=== PATIENT | female | born 1945 | race Caucasian/White ===

== ENCOUNTER 2022-11-29 13:58 | Outpatient (OUT) | payer MEDICARE, SELFPAY ==
--- NOTE | 2022-11-29 14:00 | MM_ITS ---
Patient: SAMIR STREET Exam Date: 11/29/2022 : 1945 Gender:F Ordering : DR BENY DAVIS Admission #: [id number] Family : Order #: [id number] CLICK HERE TO VIEW EXAM RADIOLOGY REPORT PROCEDURE: MM TOMOSYNTHESIS SCREENING BI COMPARISON: MG MAMM SCREEN 3D BRONSON CAD, 11/03/2020. MG MAMM SCREEN 3D BRONSON CAD, 11/07/2021. INDICATIONS: Screening mammogram Z12.31 Calculator Name NCI Breast Cancer Risk Assessment Tool 5 Year Breast Cancer Risk 1.90% Lifetime Breast Cancer Risk 4.00% Personal Breast Cancer No Personal Ovarian Cancer No Treatments None Family Cancers Son with hodgkins lymphoma cancer at age 9; Father with esophogeal cancer at age 82. LOCATION: [facility] BREAST COMPOSITION: Almost entirely fatty. FINDINGS: DIAGNOSTIC CATEGORY 2--BENIGN FINDING. NO CHANGE FROM COMPARISON. Scattered benign-appearing calcifications are present. Scattered benign-appearing lymph nodes are present. RIGHT BREAST: No significant suspicious finding. LEFT BREAST: No significant suspicious finding. RECOMMENDATIONS: ROUTINE MAMMOGRAM AND CLINICAL EVALUATION IN 12 MONTHS. PLEASE NOTE: A NORMAL MAMMOGRAM DOES NOT EXCLUDE THE POSSIBILITY OF BREAST CANCER. A CLINICALLY SUSPICIOUS PALPABLE LUMP SHOULD BE BIOPSIED. Dictated by: Tyler Lnidsey MD on 11/30/2022 at 09:26 Approved by: Tyler Lindsey MD on 11/30/2022 at 09:28
== END 2022-11-29 13:59 | disposition home or self-care (01) ==
LOC: MAMMO 13:58
PROVIDERS: PCP Family Medicine; Visit Provider Family Medicine
DX: Z12.31 Encounter for screening mammogram for malignant neoplasm of breast (principal); Z80.0 Family history of malignant neoplasm of digestive organs; Z80.7 Family history of other malignant neoplasms of lymphoid, hematopoietic and related tissues
CPT/HCPCS: 77063; 77067

== ENCOUNTER 2022-12-17 07:34 | Outpatient (OUT) | payer MEDICARE, SELFPAY | END 2022-12-17 07:35 | disposition home or self-care (01) | LOC: PST 07:35 | PROVIDERS: PCP Family Medicine; Visit Provider Surgery | DX: Z01.818 Encounter for other preprocedural examination (principal); Z12.11 Encounter for screening for malignant neoplasm of colon; D64.9 Anemia, unspecified ==

== ENCOUNTER 2022-12-26 08:23 | Day surgery (SDC) | payer MEDICARE, SELFPAY ==
--- NOTE | 2022-12-26 | OP_ITS ---
OPERATION DATE: ??12/26/2022 PREOPERATIVE DIAGNOSIS:? Iron deficiency anemia, gastroesophageal reflux disease. POSTOPERATIVE DIAGNOSIS:? A 4 cm sliding type hiatal hernia, as well as a 4 mm cecal polyp. PROCEDURE:? EGD and colonoscopy to cecum with cold snare polypectomy x1. SURGEON:? Gulshan Damian M.D. ANESTHESIA:? Monitored anesthesia care. ESTIMATED BLOOD LOSS:? Less than 1 mL. INDICATIONS AND CONSENT:? Patient is a 77-year-old female with history of iron deficiency anemia on Eliquis.? She also has some gastroesophageal reflux disease.? Indications, risks, benefits, alternatives of proceeding with EGD and colonoscopy were explained extensively to the patient, including the risks of bleeding, aspiration, esophageal/gastric/duodenal or colonic perforation or anesthetic complications.? All of her questions were answered.? Informed consent was obtained. PROCEDURE:? Patient brought to the operating room, placed in the left lateral decubitus position.? Monitored anesthesia care was provided.? Bite block was placed in the patient?s mouth.? Scope was entered into the oropharynx.? Under direct visualization, it was advanced into the esophagus, past the cricopharyngeus, down to the stomach.? The stomach was insufflated with air.? The pylorus was traversed down to the descending portion of the duodenum.? There was no evidence of duodenitis or ulceration.? There was no scarring within the pyloric channel.?? The scope was pulled back into the stomach and retroflexed.? There was noted to be a sliding type hiatal hernia, approximately 4 cm.? No distal esophagitis or Ragland?s changes. ?The remainder of the esophagus was unremarkable.? No abnormalities were noted in the stomach.? The scope was then withdrawn.? Patient tolerated procedure well, was then positioned for colonoscopy.? Rectal exam was performed, which revealed no masses or blood.? The scope was then inserted into the anal canal.? Under direct visualization, it was advanced.? It was advanced to the cecum where cecal markings were clearly identified.? Within the cecum, there was noted to be a 4 mm sessile polyp that was removed with cold snare with good hemostasis.? Upon withdrawal of the scope, mucosal surfaces were carefully examined.? There were no other mass lesions or inflammatory changes.? There was moderate sigmoid diverticulosis without inflammatory changes or scarring.? The scope was retroflexed in the anal canal.? There were some small anal papillae but no significant hemorrhoidal disease.? The scope was then withdrawn.? The patient tolerated procedure well, was sent to recovery room in good condition. f/u colonoscopy likely in 5 years, but will depend on pathology of polyp. CC:? Asia Quezada
[2022-12-26 08:42] LABS: Glucometer 132 mg/dL (74-106)
[2022-12-26 08:46] VITALS: BMI 44.4
[2022-12-26] MEDS: LACTATED RINGER'S SOLUTION 1,000 ML 50 ML IV (08:52)
[2022-12-26 10:03] VITALS: BP 115/51; PULSE 71; RESP 16; O2SAT 96
[2022-12-26 10:25] VITALS: BP 159/68; PULSE 77; RESP 16; O2SAT 96
[2022-12-26 10:55] VITALS: BP 137/73; PULSE 68; RESP 16; O2SAT 97
== END 2022-12-26 11:00 | disposition home or self-care (01) ==
PROVIDERS: PCP Family Medicine; Visit Provider Surgery
PROC: (CPT 43235; principal; 2022-12-26 09:30)
DX: Z12.11 Encounter for screening for malignant neoplasm of colon (principal); D12.0 Benign neoplasm of cecum; K57.30 Diverticulosis of large intestine without perforation or abscess without bleeding; D50.9 Iron deficiency anemia, unspecified; K44.9 Diaphragmatic hernia without obstruction or gangrene; Z87.891 Personal history of nicotine dependence; K21.9 Gastro-esophageal reflux disease without esophagitis; Z79.01 Long term (current) use of anticoagulants; E11.9 Type 2 diabetes mellitus without complications; I10 Essential (primary) hypertension; E66.01 Morbid (severe) obesity due to excess calories; Z68.41 Body mass index [BMI] 40.0-44.9, adult; Z86.711 Personal history of pulmonary embolism; G47.33 Obstructive sleep apnea (adult) (pediatric); Z90.49 Acquired absence of other specified parts of digestive tract; Z90.710 Acquired absence of both cervix and uterus; Z79.84 Long term (current) use of oral hypoglycemic drugs
CPT/HCPCS: 43235; 45385; 36415; 82948; 88305; J2704

== ENCOUNTER 2023-08-28 13:49 | Outpatient (OUT) | payer MEDICARE, SELFPAY ==
--- NOTE | 2023-08-28 14:00 | CA_ITS ---
Patient Name: SAMIR STREET MR#: [id number] : 1945 Exam Date: 08/28/2023 Ordering Doctor: TODD VILLANUEVA M.D. ECHOCARDIOGRAM REPORT PROCEDURE: CA ECHO DOPPLER COMPLETE INDICATIONS: Palpitations, Right Bundle Branch Block, hypertension, diabetes COMPARISON: None. DESCRIPTION: COMPLETE ECHOCARDIOGRAM Real-time transthoracic echocardiography with 2D, M-mode, spectral and color flow Doppler performed. QUALITY: Technical quality was good. 60 , 216#, BSA 1.93 m2, BP 132/88 LEFT VENTRICLE: Normal chamber size. Mild concentric left ventricular hypertrophy. LV EF: Global left ventricular systolic function is normal; visually estimated ejection fraction is 60 to 65%. No significant wall motion abnormalities. DIASTOLIC: Unable to assess diastolic function. ATRIAL SEPTUM: Inadequately seen. LEFT ATRIUM: Normal chamber size. RIGHT ATRIUM: Normal chamber size. RIGHT VENTRICLE: Normal chamber size. Normal right ventricular systolic function. TRICUSPID VALVE: Normal mobility and thickness. No stenosis with no regurgitation. Unable to assess right-sided pressures due to lack of measurable tricuspid regurgitation. MITRAL VALVE: Normal mobility and thickness. No evidence of mitral valve stenosis. There is no mitral annular calcification. Trivial mitral regurgitation. AORTIC VALVE: Normal trileaflet appearance. No visible sclerosis. Normal leaflet mobility. No evidence of aortic valve stenosis. No aortic regurgitation. AORTIC ROOT: Normal diameter and appearance. Ascending aorta is normal in size. PULMONIC VALVE: Not well visualized. No stenosis. No regurgitation. PERICARDIUM: Anterior free space; trivial effusion versus fat pad. IVC: Not well visualized. CONCLUSION: 1. Global left ventricular systolic function is normal; visually estimated ejection fraction is 60 to 65% 2. Mildly increased left ventricular wall thickness 3. Normal right ventricular size and systolic function 4. No significant valvular abnormalities 5. Anterior free space; trivial effusion versus fat pad Adult Echocardiography Procedure Report Left Ventricle LVEDD (3.7 - 5.6 cm): 4.02 cm LVESD (2.2 - 4.0 cm): 2.46 cm LVIVS thickness (0.6 - 1.2 cm): 1.23 cm LVPW thickness (0.5 - 1.0 cm): 1.31 cm e': 0.08 m/s E - e': 10.54 LVOT Max Gradient: 2.06 mm[Hg] LVOT Area (cm2): 0.72 m/s Peak Velocity (LVOT): 0.72 m/s Mean Velocity (LVOT): 0.49 m/s LVOT Diameter 2.33 cm Left Atrium Left Atrium Systolic Dimension: 4.30 cm Mitral Valve MV E to A Ratio: 1 Mitral Valve A-Wave Peak Velocity: 0.87 m/s Mitral Valve E-Wave Peak Velocity: 0.87 m/s Right Ventricle Aorta AO Root Diam: 3.72 cm Ascending Ao Diam: 2.80 cm Aortic Valve AoV Area (Peak Quinten): 2.68 cm2, 2.68 cm2 AoV Area (VTI): 3.05 cm2, 3.05 cm2 Peak Velocity(Antegrade Flow): 1.14 m/s Peak Gradient(Antegrade Flow): 5.20 mm[Hg] Mean Velocity(Antegrade Flow): 0.72 m/s Mean Gradient(Antegrade Flow): 2.49 mm[Hg] Velocity Time Integral: 23.71 cm Tricuspid Valve Pulmonic Valve Peak Gradient: 4.55 mm[Hg], 4.13 mm[Hg] Right Atrium Dictated by: Lupis Castillo M.D. on 08/29/2023 at 15:39 Approved by: Lupis Castillo M.D. on 08/29/2023 at 15:42
== END 2023-08-28 13:50 | disposition home or self-care (01) ==
LOC: CARD 13:50
PROVIDERS: PCP Family Medicine; Visit Provider Internal Medicine Cardiovascular Disease
DX: R00.2 Palpitations (principal); I45.10 Unspecified right bundle-branch block
CPT/HCPCS: 93306

== ENCOUNTER 2023-12-02 10:31 | Outpatient (OUT) | payer MEDICARE, SELFPAY ==
--- NOTE | 2023-12-02 10:33 | MM_ITS ---
Patient Name: SAMIR STREET MR#: [id number] : 1945 Exam Date: 12/02/2023 Ordering Doctor: DR BENY DAVIS RADIOLOGY REPORT PROCEDURE: MM TOMOSYNTHESIS SCREENING BI COMPARISON: MM TOMOSYNTHESIS SCREENING BI, 11/29/2022. MG MAMM SCREEN 3D BRONSON CAD, 11/07/2021. MG MAMM SCREEN 3D BRONSON CAD, 11/03/2020. MG MAMM BRONSON SCRN W CAD DIG, 03/24/2013. INDICATIONS: Screening Calculator Name NCI Breast Cancer Risk Assessment Tool 5 Year Breast Cancer Risk 1.90% Lifetime Breast Cancer Risk 3.80% Personal Breast Cancer No Personal Ovarian Cancer No Treatments None Family Cancers Son with hodgkins lymphoma cancer at age 9; Father with esophogeal cancer at age 82. LOCATION: [facility] BREAST COMPOSITION: The breasts are almost entirely fatty. FINDINGS: DIAGNOSTIC CATEGORY 2--BENIGN FINDING: RIGHT BREAST: No significant suspicious finding. No significant change has occurred. LEFT BREAST: No significant suspicious finding. Scattered benign-appearing calcifications are present. No significant change has occurred. RECOMMENDATIONS: ROUTINE MAMMOGRAM AND CLINICAL EVALUATION IN 12 MONTHS. PLEASE NOTE: A NORMAL MAMMOGRAM DOES NOT EXCLUDE THE POSSIBILITY OF BREAST CANCER. A CLINICALLY SUSPICIOUS PALPABLE LUMP SHOULD BE BIOPSIED. Dictated by: Benny Lezama M.D. on 12/03/2023 at 13:19 Approved by: Benny Lezama M.D. on 12/03/2023 at 13:24
== END 2023-12-02 10:32 | disposition home or self-care (01) ==
LOC: MAMMO 10:31
PROVIDERS: PCP Family Medicine; Visit Provider Family Medicine
DX: Z12.31 Encounter for screening mammogram for malignant neoplasm of breast (principal); Z80.8 Family history of malignant neoplasm of other organs or systems
CPT/HCPCS: 77063; 77067

== ENCOUNTER 2024-12-04 13:15 | Outpatient (OUT) | payer MEDICARE, SELFPAY ==
--- OUTSIDE RECORDS SUMMARY | 2024-11-20 02:28 | XMS_ITS | Encounter Summary ---
Author Organization [facility] tem Address [facility] – [id number] [address] [place] [address] Care Team Providers Care Ball Winder Name Role Phone Law Patel Delaney RAMIREZ Primary Care Provider + [phone] Reason for Referral * Consultation (Urgent) - Pending Review Specialty Diagnoses / Procedures Referred By Contal t Referred To Contact Orthopaedic Surgery Diagnoses Anterior dislocation of right shoulder, initial encounter Gulshan Diaz DO [address] [facility], [address] [place] [address] Phone: tel: fax: Mo Honeycutt MD [address] [place] [address] Phone: tel: fax: Referral ID Status Reason Start Date Expiration Date Visits Requested Visits Authorized [id number] Pending Review Specialty Services Required 11/20/2024 11/20/2025 1 1 Reason for Visit * Reason Comments Fall Encounter Details Date Type Department Care Team (Late st Contact Info) Description 11/20/2024 2:28 AM EDT - 11/20/2024 6:54 AM EDT Emergency [facility] - Emergency [address] [place] [address] Gulshan Diaz DO [address] [facility], [address] [place] [id number] Anterior dislocation of right shoulder, initial encounter (Primary Dx) Discharge Disposition: Home Social History Tobacco Use Types Packs/Day Years Used Date Smoking Tobacco: Former Cigarettes 1 10 0 09/27/1994 - 09/27/2004 Smokeless Tobacco: Never Alcohol Use Standard Drinks/Week Comments Yes 10 (1 standard drink = 0.6 oz pu re alcohol) [facility] Utilities Answer Date Recorded In the past 12 months has e electric, gas, oil, or water company threatened to shut off services in your home? No 05/20/2023 Social Connection and Isolat ion Panel [NHANES] Answer Date Recorded In a typical week, how many times do you talk on the phone with family, friends, or neighbors? Three times a week 10/05/2022 How often do you get togethe r with friends or relatives? More than three times a week 10/05/2022 How often do you attend chur ch or latter-day services? More than 4 times per year 10/05/2022 Do you belong to any clubs o r organizations such as adventism groups, unions, fraternal or athletic groups, or school groups? Yes 10/05/2022 How often do you attend meet ings of the clubs or organizations you belong to? More than 4 times per year 10/05/2022 Are you , , di vorced, , never , or living with a partner? 10/05/2022 AUDIT-C Answer Date Recorded Q1: How often do you have a drink containing alc ohol? 2-4 times a month 02/06/2022 Q2: How many drinks containi ng alcohol do you have on a typical day when you are drinking? 1 or 2 02/06/2022 Q3: How often do you have si x or more drinks on one occasion? Never 02/06/2022 Overall Financial Resource Strain (CARDIA) Answe r Date Recorded How hard is it for you to pa y for the very basics like food, housing, medical care, and heating? Not hard at all 10/05/2022 PHQ-2 Answer Date Recorded Total Score 0 11/06/2024 [employer] - Occupational Stress Questionnaire Answer Date Recorded Do you feel stress - tense, restless, nervous, or anxious, or unable to sleep at night because your mind is troubled all the time - these days? Not at all 01/07/2024 Exercise Vital Sign Answer Date Recorde d On average, how many days pe r week do you engage in moderate to strenuous exercise (like a brisk walk)? 0 days 01/07/2024 On average, how many minutes do you engage in exercise at this level? 0 min 01/07/2024 PRAPARE - Transportation Answer Date Re corded In the past 12 months, has l ack of transportation kept you from medical appointments or from getting medications? No 04/30 In the past 12 months, has l ack of transportation kept you from meetings, work, or from getting things needed for daily living? No 05/18/2023 Housing Instability Answer Date Recorde d Are you worried or concerned that in the next two months you may not have stable housing that you own, rent or stay in as a part of a household? No 05/18/2023 Childcare Answer Date Recorded Do problems getting child ca re make it difficult for you to work or study? No 10/05/2022 Employment Answer Date Recorded Do you need help finding a [employer] career center and/or a training program? No 10/05/2022 Hunger Screening Answer Date Recorded Within the past 12 months we worried whether our food would run out before we got money to buy more. Never True 11/06/2024 Within the past 12 months th e food we bought just didn't last and we didn't have money to get more. Never True 11/06/2024 Purpose - Life Answer Date Recorded I have a purpose and direction in my life. Stron gly Agree 10/05/2022 Comments No Sex and Gender Information Value Date Recorded Sex Assigned at Not on file Legal Sex Female 12:56 PM EDT Gender Identity Not on file Sexual Orientation Not on file documented as of this encounter Last Filed Vital Signs Vital Sign Reading Time Taken Comments Blood Pressure 143/59 11/20/2024 6:36 AM EDT Pulse 76 11/20/2024 6:36 AM EDT Temperature 37 C (98.6 F) 11/20/2024 6:36 AM EDT Respiratory Rate 17 11/20/2024 6:36 AM EDT Oxygen Saturation 95% 11/20/2024 6:36 AM EDT Inhaled Oxygen Concentration - - Weight 90.7 kg (200 lb) 11/20/2024 2:26 AM EDT Height 152.4 cm (5') 11/20/2024 2:26 AM EDT Body Mass Index 39.06 11/20/2024 2:26 AM EDT documented in this encounter Discharge Instructions * Discharge Instructions* Gulshan Diaz DO - 11/20/2024 5:59 AM EDT Please utilize sling as discussed. You may use [id number] Tylenol as directed for management of pain. Contact the orthopedic surgeon and your family doctor as soon as possible to schedule a follow up appointment. Please return to the emergency department for any new or worsening symptoms. * Attachments The following attachments cannot be sent through Care Everywhere. * Shoulder Dislocation Discharge Instructions (Bahraini) documented in this encounter Medications at Time of Discharge acetaminophen (TYLENOL ARTHRITIS) 650 mg 8 hr tablet Take 1 tablet (650 mg total) by mouth every 8 (eight) hours as needed for pain. 30 tablet 10/05/2022 ELIQUIS 5 mg tablet TAKE 1 TABLET BY MOUTH TWICE DAILY 180 tablet 3 04/06/2024 escitalopram (LEXAPRO) 10 mg tablet TAKE 1 TABLET BY MOUTH IN THE MORNING 90 tablet 1 08/31/2024 iron dextran complex (INFED) 50 mg/mL injection Infuse into a venous catheter. JARDIANCE 10 mg tablet tablet TAKE 1 TABLET BY MOUTH IN THE MORNING 90 tablet 11/02/2024 losartan-hydroCH LOROthiazide (HYZAAR) 50-12.5 mg per tablet TAKE 1 TABLET BY MOUTH IN THE MORNING 90 tablet 1 09/21/2024 mecobalamin, vitamin B12, 10,000 mcg recon soln Inject as directed. metFORMIN (GLUCOPHAGE) 500 mg tablet TAKE 1 TABLET BY MOUTH TWICE DAILY 180 tablet 3 03/18/2024 metoprolol succinate XL (TOPROL XL) 100 mg 24 hr tablet Take 1 tablet (100 mg total) by mouth in the morning. 10/14/2024 mirtazapine (REMERON) 15 mg tablet Take 0.5 tablets (7.5 mg total) by mouth nightly as needed. 04/30/2023 semaglutide (OZEMPIC) 0.25 mg or 0.5 mg (2 mg/3 mL) pen injector Inject 0.5 mg under the skin once a week. 9 mL 3 11/16/2024 simvastatin (ZOCOR) 20 mg tablet TAKE 1 TABLET BY MOUTH DAILY 90 tablet 1 09/21/2024 TRUE METRIX GLUCOSE METER misc 09/26/2023 TRUE METRIX GLUCOSE TEST STRIP strip USE DIRECTED to test BLOOD SUGAR ONCE DAILY 09/23/2024 lansoprazole (PREVACID) 30 mg capsule TAKE 1 CAPSULE BY MOUTH DAILY NEEDED 90 capsule 1 06/28/2024 11/24/2024 documented as of this encounter ED Notes * Gulshan Diaz DO - 11/20/2024 2:56 AM EDTAssociated Order(s): Orthopedic Injury Treatment Images from the original note were not included. [facility] - EMERGENCY Pt Name: Daisy Andrews Birthdate: 1945 Chief Complaint: Chief Complaint Patient presents with Fall History of Present Illness: 79-year-old female presenting for evaluation s/p fall. Patient states that around 6:00 p.m. yesterday evening, she was in her kitchen, tripped on her feet, fell onto her right shoulder. Denies hitting her head or any loss of consciousness. States that since the incident, she has had pain in her right shoulder and proximal humerus. Range of motion limited secondary to pain. Denies any headaches, changes in vision, neck pain/stiffness, extremity numbness, chest pain, shortness of breath, abdominal pain, back pain, flank pain, nausea/vomiting, or any other areas of injury or pain. Took Tylenol after the incident with mild improvement in symptoms. No other complaints during today's evaluation. Past Medical History: Past Medical History: Diagnosis Date Hyperlipidemia Other pulmonary embolism without acute cor pulmonale (CMS-HCC) Sliding hiatal hernia Visual impairment Past Surgical History: Past Surgical History: Procedure Laterality Date CATARACT EXTRACTION CHOLECYSTECTOMY COLONOSCOPY 01/03/2023 Dr. Damian-1 polyp ESOPHAGOGASTRODUODENOSCOPY 01/03/2023 Dr. Damian HYSTERECTOMY RELEASE TRIGGER FINGER Left 01/03/2022 Performed by Scott Díaz DO at [facility] Family History: Family History Problem Relation Age of Onset No Known Problems Mother sudden at 75, smoker Esophageal cancer Father at age 82; smoker Heart attack Sister sudden at age 52; smoker Hypertension Sister No Known Problems Sister Hypertension Brother Stroke Brother 52 COPD Son 49 pneumothorax Social History: Social History Socioeconomic History Marital status: Tobacco Use Smoking status: Former Current packs/day: 0.00 Average packs/day: 1 pack/day for 10.0 years (10.0 ttl pk-yrs) Types: Cigarettes Start date: 09/27/1994 Quit date: 09/27/2004 Years since quittin.1 Smokeless tobacco: Never Vaping Use Vaping status: Never Used Substance and Sexual Activity Alcohol use: Yes Alcohol/week: 10.0 standard drinks of alcohol Types: 10 Shots of liquor per week Drug use: Never Sexual activity: Defer Social Drivers of Health Financial Resource Strain: Low Risk (10/05/2022) Overall Financial Resource Strain (CARDIA) Difficulty of Paying Living Expenses: Not hard at all Food Insecurity: No Food Insecurity (11/06/2024) Hunger Screening Food Insecurity - Worry: Never True Food Insecurity - Inability: Never True Transportation Needs: No Transportation Needs (05/18/2023) PRAPARE - Transportation Lack of Transportation (Medical): No Lack of Transportation (Non-Medical): No Physical Activity: Inactive (01/07/2024) Exercise Vital Sign Days of Exercise per Week: 0 days Minutes of Exercise per Session: 0 min Stress: No Stress Concern Present (01/07/2024) [employer] - Occupational Stress Questionnaire Feeling of Stress : Not at all Social Connections: Moderately Integrated (10/05/2022) Social Connection and Isolation Panel [NHANES] Frequency of Communication with Friends and Family: Three times a week Frequency of Social Gatherings with Friends and Family: More than three times a week Attends Christianity Services: More than 4 times per year Active Member of Clubs or Organizations: Yes Attends Club or Organization Meetings: More than 4 times per year Marital Status: Interpersonal Safety: Not At Risk (01/07/2024) Humiliation, Afraid, Rape, and Kick questionnaire Fear of Current or Ex-Partner: No Emotionally Abused: No Physically Abused: No Sexually Abused: No Housing Instability: Low Risk (05/18/2023) Housing Instability Housing Instability: No Review of Systems: Review of Systems Physical Exam: ED Triage Vitals [11/20/24 0226] Temp Heart Rate Resp BP SpO2 36.8 ??C (98.3 ??F) 73 19 149/72 97 % Temp Source Heart Rate Source Patient Position BP Location FiO2 (%) Oral Pulse Ox Semi-fowlers Left arm -- Vitals: 11/20/24 0620 11/20/24 0625 11/20/24 0630 11/20/24 0636 BP: 150/57 143/59 Temp: 37 ??C (98.6 ??F) TempSrc: Pulse: 74 76 76 76 Resp: 16 15 16 17 SpO2: 94% 93% 95% 95% MAP (mmHg): 79 Height: Weight: 95 Physical Exam Vitals and nursing note reviewed. Exam conducted with a cigar head piercer present. Constitutional: General: She is not in acute distress. Appearance: Normal appearance. She is normal weight. HENT: Head: Normocephalic and atraumatic. Comments: No external signs of trauma to the head. Right Ear: Tympanic membrane and external ear normal. Left Ear: Tympanic membrane and external ear normal. Nose: Nose normal. Mouth/Throat: Mouth: Mucous membranes are moist. Pharynx: Oropharynx is clear. Eyes: General: No scleral icterus. Extraocular Movements: Extraocular movements intact. Conjunctiva/sclera: Conjunctivae normal. Pupils: Pupils are equal, round, and reactive to light. Neck: Comments: No midline cervical tenderness, step-offs, or deformities. Cardiovascular: Rate and Rhythm: Normal rate and regular rhythm. Pulses: Normal pulses. Heart sounds: Normal heart sounds. No murmur heard. No friction rub. No gallop. Pulmonary: Effort: Pulmonary effort is normal. No respiratory distress. Breath sounds: Normal breath sounds. No stridor. No wheezing, rhonchi or rales. Chest: Chest wall: No tenderness. Abdominal: General: Abdomen is flat. Bowel sounds are normal. Palpations: Abdomen is soft. Tenderness: There is no abdominal tenderness. Musculoskeletal: Cervical back: Normal range of motion and neck supple. No rigidity or tenderness. Right lower leg: No edema. Left lower leg: No edema. Comments: No midline tenderness, step-offs, or deformities to the thoracic or lumbar spine. Tenderness over the right shoulder. Range of motion limited secondary to pain. No other palpable areas of bony tenderness. Neurovascularly intact distally. Equal ocean clam boat captain strength bilaterally. Skin: General: Skin is warm and dry. Capillary Refill: Capillary refill takes less than 2 seconds. Coloration: Skin is not jaundiced or pale. Findings: No rash. Neurological: General: No focal deficit present. Mental Status: She is alert and oriented to person, place, and time. Mental status is at baseline. Cranial Nerves: No cranial nerve deficit. Sensory: No sensory deficit. Motor: No weakness. Coordination: Coordination normal. Psychiatric: Mood and Affect: Mood normal. Behavior: Behavior normal. Thought Content: Thought content normal. Procedure: Orthopedic Injury Treatment Date/Time: 11/20/2024 5:24 AM Performed by: Gulshan Diaz DO Authorized by: Gulshan Diaz, DO Verbal consent obtained?: Yes Written consent obtained?: Yes Risks and benefits: Risks, benefits, complications and alternatives were discussed Consent given by: Patient Patient states understanding of procedure being performed: Yes Patient's understanding of procedure matches consent: Yes Procedure consent matches procedure scheduled: Yes Relevant documents present and verified: Yes Test results available and properly labeled: Yes Site marked: Yes Imaging studies available: Yes Required items: Required blood products, implants, devices and special equipment available Patient identity confirmed: Verbally with patient and arm band Time out: Immediately prior to the procedure a time out was called Injury location: Shoulder Location details: Right shoulder Injury type: Dislocation Dislocation type: anterior Chronicity: [place] Hill-Sachs deformity?: No Neurovascular status: Neurovascularly intact Distal perfusion: normal Neurological function: normal Range of motion: reduced Sedation used: Yes Sedation Type: moderate (Conscious) sedation Pre-sedation assessment: ASA classification: class 2 - patient with mild systemic disease Mallampati score: I - soft palate, uvula, fauces, pillars visible Neck mobility: normal Mouth openin or more finger widths Thyromental distance: 3 finger widths Immediate pre-procedure details: Reassessment: Patient reassessed immediately prior to procedure Reviewed: vital signs, relevant labs/tests and NPO status Verified: bag valve mask available, emergency equipment available, intubation equipment available, IV patency confirmed, oxygen available, reversal medications available and suction available Procedure details (see MAR for exact dosages): Sedation start time: 11/20/2024 5:24 AM Preoxygenation: Nasal cannula Sedation: Propofol Analgesia: Fentanyl Intra-procedure monitoring: Blood pressure monitoring, shelter monitor, continuous pulse oximetry, continuous capnometry, frequent LOC assessments and frequent vital sign checks Intra-procedure events: none Vital signs: Vital signs monitored during sedation Sedation end time: 11/20/2024 5:50 AM Post-procedure sedation details: Attendance: Constant attendance by certified staff until patient recovered Recovery: Patient returned to pre-procedure baseline Manipulation performed?: Yes Reduction method: External rotation and Milch technique Reduction successful?: Yes Confirmation: Reduction confirmed by x-ray Immobilization: Sling Neurovascular status: Neurovascularly intact Distal perfusion: normal Neurological function: normal Range of motion: improved Patient tolerance: Patient tolerated the procedure well with no immediate complications Re-evaluation: Re-Evaluation Medical Decision Making Amount and/or Complexity of Data Reviewed Radiology: ordered and independent interpretation performed. Decision-making details documented in ED Course. Risk OTC drugs. Prescription drug management. Parenteral controlled substances. ED Course: ED Course as of 12/01/24633Nov 20, 2024 0318 Imaging independently reviewed and concerning for anterior shoulder dislocation. [MB] ED Course User Index [MB] Gulshan Diaz DO Clinical Impressions as of 12/01/24633 Anterior dislocation of right shoulder, initial encounter . ED Disposition ED Disposition Discharge Date/Time SatNov 20, 2024 6:28 AM Comment At the time of discharge, the plan has been discussed with the patient regarding the diagnosis and prognosis. All questions have been answered. Verbal discharge instructions were discussed with the patient. The patient has been advised to follow up w ith their Primary Care Provider and Specialist within 1-2 days. The patient was also instructed to return to the ED if their symptoms change, worsen, new symptoms arise or if they have any additional concerns. . Please note that portions of this note were completed with a voice recognition program. Efforts were made to edit the dictations but occasionally words are mis-transcribed. Gulshan Diaz DO 11/20/24 025 Gulshan Diaz DO 12/01/24633 * Nikki Sheikh RN - 11/20/2024 2:29 AM EDT Pt reports trip and fall this evening, landing on R shoulder. Tylenol for pain has not improved, painful ROM. documented in this encounter Miscellaneous Notes * Sedation Documentation - Antonieat Chua RN - 11/20/2024 5:59 AM EDT Given water to drink. Awake and alert. Son at bedside. * Sedation Documentation - Antonieta Chua RN - 11/20/2024 5:50 AM EDT Sling applied to right upper extremity. * Sedation Documentation - Antonieta Chua RN - 11/20/2024 5:41 AM EDT Post-reduction x-ray done and looks good per Dr. Diaz. * Sedation Documentation - Antonieta Chua RN - 11/20/2024 5:[address] Diaz manipulating right shoulder. * Sedation Documentation - Antonieta Chua RN - 11/20/2024 5:33 AM EDT Given another 10 mg of diprovan ivp per Dr. Diaz. * Sedation Documentation - Antonieta Chua RN - 11/20/2024 5:10 AM EDT Parisa from Respiratory here for conscious sedation. documented in this encounter Plan of Treatment Upcoming Encounters Date Type Department Care Team (Late st Contact Info) Description 01/12/2025 1:00 PM EDT Office Visit [facility] [address] [place] [address] 05/10/2025 1:45 PM EST Office Visit [facility] [address] [place] [address] Patel Foy DO [address], [place] [address] Scheduled Referrals Name Type Priority Associated Diagnoses Order Schedule Ambulatory referral to Orthopedic Surgery Outpatient Referral Routine Anterior dislocation of right shoulder, initial encounter 1 Occurrences starting 11/20/2024 until 11/20/2025 documented as of this encounter Procedures Procedure Name Priority Date/Time Associated Diagnosis Comments XR SHOULDER RT 1 VW STAT 11/20/2024 5 :44 AM EDT PM ED ORTHOPEDIC INJURY TREATMENT Routine 11/20/2024 5:24 AM EDT XR SHOULDER RT 1 VW STAT 11/20/2024 4 :41 AM EDT XR HUMERUS RT MIN 2 VWS STAT 11/20/2024 3:15 AM EDT XR SHOULDER RT MIN 2 VWS STAT 11/20/2024 3:15 AM EDT documented in this encounter Results * X-ray shoulder right 1 view (11/20/2024 5:44 AM EDT) Anatomical Region Laterality Modality MSK, Upper Extremities, Shoulder Right Computed Radiography 11/20/2024 5:46 AM EDT Narrative 11/20/2024 5:52 AM EDT XR SHOULDER RT 1 VW HISTORY: Dislocation status post reduction COMPARISON: 11/20/2024 0434 hours FINDINGS/IMPRESSION: * Satisfactory glenohumeral articulation status post reduction. No appreciable fracture on this single view. Approved by Resident: Hola Tamez MD on 11/20/2024 5:46 AM Radha Martinez MD have personally reviewed the image(s) and agree with and/or edited the report Finalized by Radha Spivey MD on 11/20/2024 5:52 AM Procedure Note Radha Spivey MD - 11/20/2024 XR SHOULDER RT 1 VW HISTORY: Dislocation status post reduction COMPARISON: 11/20/2024 0434 hours FINDINGS/IMPRESSION: * Satisfactory glenohumeral articulation status post reduction. Noappreciable fracture on this single view. Approved by Resident: Hola Tamez MD on 11/20/2024 5:46AM Radha Martinez MD have personally reviewed the image(s) and agree withand/or edited the report Finalized by Radha Spivey MD on 11/20/2024 5:52 AM Gulshan Diaz DO [facility] ORDERAB LES Final Result * Orthopedic Injury Treatment (11/20/2024 5:24 AM EDT) Gulshan Davidson DO - 11/20/2024 5:24 AM EDT Gulshan Diaz DO 12/01/2024 6:34 AM Orthopedic Injury Treatment Date/Time: 11/20/2024 5:24 AM Performed by: Gulshan Diaz DO Authorized by: Gulshan Diaz DO Verbal consent obtained?: Yes Written consent obtained?: Yes Risks and benefits: Risks, benefits, complications and alternatives were discussed Consent given by: Patient Patient states understanding of procedure being performed: Yes Patient's understanding of procedure matches consent: Yes Procedure consent matches procedure scheduled: Yes Relevant documents present and verified: Yes Test results available and properly labeled: Yes Site marked: Yes Imaging studies available: Yes Required items: Required blood products, implants, devices and special equipment available Patient identity confirmed: Verbally with patient and arm band Time out: Immediately prior to the procedure a time out was called Injury location: Shoulder Location details: Right shoulder Injury type: Dislocation Dislocation type: anterior Chronicity: [place]-Sachs deformity?: No Neurovascular status: Neurovascularly intact Distal perfusion: normal Neurological function: normal Range of motion: reduced Sedation used: Yes Sedation Type: moderate (Conscious) sedation Pre-sedation assessment: ASA classification: class 2 - patient with mild systemic disease Mallampati score: I - soft palate, uvula, fauces, pillars visible Neck mobility: normal Mouth openin or more finger widths Thyromental distance: 3 finger widths Immediate pre-procedure details: Reassessment: Patient reassessed immediately prior to procedure Reviewed: vital signs, relevant labs/tests and NPO status Verified: bag valve mask available, emergency equipment available, intubation equipment available, IV patency confirmed, oxygen available, reversal medications available and suction available Procedure details (see MAR for exact dosages): Sedation start time: 11/20/2024 5:24 AM Preoxygenation: Nasal cannula Sedation: Propofol Analgesia: Fentanyl Intra-procedure monitoring: Blood pressure monitoring, shelter monitor, continuous pulse oximetry, continuous capnometry, frequent LOC assessments and frequent vital sign checks Intra-procedure events: none Vital signs: Vital signs monitored during sedation Sedation end time: 11/20/2024 5:50 AM Post-procedure sedation details: Attendance: Constant attendance by certified staff until patient recovered Recovery: Patient returned to pre-procedure baseline Manipulation performed?: Yes Reduction method: External rotation and Milch technique Reduction successful?: Yes Confirmation: Reduction confirmed by x-ray Immobilization: Sling Neurovascular status: Neurovascularly intact Distal perfusion: normal Neurological function: normal Range of motion: improved Patient tolerance: Patient tolerated the procedure well with no immediate complications Gulshan Diaz DO PROCEDURE/MINOR SURGICAL ORDER SUNIL Final Result * X-ray shoulder right 1 view (11/20/2024 4:41 AM EDT) Anatomical Region Laterality Modality MSK, Upper Extremities, Shoulder Right Computed Radiography 11/20/2024 4:43 AM EDT Narrative 11/20/2024 4:48 AM EDT XR SHOULDER RT 1 VW HISTORY: Postreduction, shoulder pain COMPARISON: 11/21/2019 5032 hours FINDINGS/IMPRESSION: * Persistent anterior inferior glenohumeral dislocation. Approved by Resident: Hola Tamez MD on 11/20/2024 4:43 AM Jorge Martinez MD have personally reviewed the image(s) and agree with and/or edited the report Finalized by Jorge Bullock MD on 11/20/2024 4:48 AM Procedure Note Jorge Bullock MD - 11/20/2024 XR SHOULDER RT 1 VW HISTORY: Postreduction, shoulder pain COMPARISON: 11/21/2019 5032 hours FINDINGS/IMPRESSION: * Persistent anterior inferior glenohumeral dislocation. Approved by Resident: Hola Tamez MD on 11/20/2024 4:43AM I, Jorge Bullock MD have personally reviewed the image(s) and agreewith and/or edited the report Finalized by Jorge Bullock MD on 11/20/2024 4:48 AM Gulshan Diaz DO IMG DIAGNOSTIC IMAGING ORDERAB LES Final Result * X-ray humerus right minimum 2 views (11/20/2024 3:15 AM EDT) Anatomical Region Laterality Modality Upper Extremities, MSK, Humerus Right Computed Radiography 11/20/2024 3:19 AM EDT Narrative 11/20/2024 3:20 AM EDT History: Fall, right arm pain Exam/Technique: 2 views right humerus Comparison: No relevant prior studies available. Findings/impression: There is anterior shoulder dislocation with no gross displaced fracture. Otherwise the remaining right humerus is grossly unremarkable Finalized by Radha Spivey MD on 11/20/2024 3:20 AM Procedure Note Radha Spivey MD - 11/20/2024 History: Fall, right arm pain Exam/Technique: 2 views right humerus Comparison: No relevant prior studies available. Findings/impression: There is anterior shoulder dislocation with no gross displaced fracture.Otherwise the remaining right humerus is grossly unremarkable Finalized by Radha Spivey MD on 11/20/2024 3:20 AM Gulshan Diaz DO [facility] DIAGNOSTIC IMAGING ORDERAB LES Final Result * X-ray shoulder right minimum 2 views (11/20/2024 3:15 AM EDT) Anatomical Region Laterality Modality MSK, Upper Extremities, Shoulder Right Computed Radiography 11/20/2024 3:18 AM EDT Narrative 11/20/2024 3:19 AM EDT History: Fall, shoulder injury Exam/Technique: 2 views right shoulder Comparison: No relevant prior studies available. Findings/impression: There is an anterior shoulder dislocation. There is no gross displaced fracture. Finalized by Radha Spivey MD on 11/20/2024 3:19 AM Procedure Note Radha Spivey MD - 11/20/2024 History: Fall, shoulder injury Exam/Technique: 2 views right shoulder Comparison: No relevant prior studies available. Findings/impression: There is an anterior shoulder dislocation. There is no gross displacedfracture. Finalized by Radha Spivey MD on 11/20/2024 3:19 AM Gulshan Diaz DO [facility] DIAGNOSTIC IMAGING ORDERAB LES Final Result documented in this encounter Visit Diagnoses Diagnosis Anterior dislocation of right shoulder, initial encounter- Primary documented in this encounter Administered Medications Inactive Administered Medications - up to 3 most recent administrations Medication Order MAR Action Action Date Dose Rate Site diazePAM (VALIUM) injection 4 mg 4 mg, intravenous, Once, On Sat11/20/24 at 0325, For 1 dose, Look-alike/sound-alike medication - verify indication for use. Given 11/20/2024 3:53 AM EDT 4 mg fentaNYL (SUBLIMAZE) injection 50 mcg 50 mcg, intravenous, Once, On Sat11/20/24 at 0445, For 1 dose, For IVP, must be given slow IV Push over 1 to 2 minutes. Look-alike/sound-alike medication - verify indication for use. Given 11/20/2024 5:23 AM EDT 50 mcg propofol (DIPRIVAN) injection 100 mg 100 mg, intravenous, Once, On Sat11/20/24 at 0445, For 1 dose, Provide at bedside for conscious sedation Look-alike/sound-alike medication - verify indication for use. Tubing and any unused portions of propofol vials should be discarded after 12 hours. Given 11/20/2024 5:24 AM EDT 90 mg sodium chloride 0.9 % bolus 1,000 mL, intravenous, at 984 mL/hr, Administer over 61 Minutes, Once, On Sat11/20/24 at 0445, For 1 dose New Bag 11/20/2024 4:48 AM EDT 1,000 mL 984 mL/hr documented in this encounter Active and Recently Administered Medications Times are shown in EDT. Scheduled Medication Order 11/18/2024 11/19/2024 11/20/2024 acetaminophen (TYLENOL EXTRA STRENGTH) tablet 1,000 mg 1,000 mg, oral, Once, On Sat11/20/24 at 0245, For 1 dose 0245 (Not Given - Pr ovider: Antonieta Chua RN - Reason: Patient/family refused) diazePAM (VALIUM) injection 4 mg (COMPLETED) 4 mg, intravenous, Once, On Sat11/20/24 at 0325, For 1 dose, Look-alike/sound-alike medication - verify indication for use. 0353 (Given - Provid er: Antonieta Chua RN) fentaNYL (SUBLIMAZE) injection 50 mcg (COMPLETED) 50 mcg, intravenous, Once, On Sat11/20/24 at 0445, For 1 dose, For IVP, must be given slow IV Push over 1 to 2 minutes. Look-alike/sound-alike medication - verify indication for use. 0523 (Given - Provid er: Antonieta Chua RN) propofol (DIPRIVAN) injection 100 mg (COMPLETED) 100 mg, intravenous, Once, On Sat11/20/24 at 0445, For 1 dose, Provide at bedside for conscious sedation Look-alike/sound-alike medication - verify indication for use. Tubing and any unused portions of propofol vials should be discarded after 12 hours. 0524 (Given - Provid er: Antonieta Chua RN) sodium chloride 0.9 % bolus (COMPLETED) 1,000 mL, intravenous, at 984 mL/hr, Administer over 61 Minutes, Once, On Sat11/20/24 at 0445, For 1 dose 0448 (New Bag - Prov ider: Antonieta Chua RN)0558 (Stop Bag - Provider: Antonieta Chua RN) documented in this encounter Additional Health Concerns Assessment Noted Time PHQ-9 Depression Total Score: 0 11/07/19 25 11:11 AM EDT A Body Mass Index follow-up plan has been documented for the patient 11/06/2024 2:23 PM EDT documented as of this encounter Care Teams Ball Winder Relationship Specialty Start Date End Date Patel Foy DO [address] [facility], [place] [address] PCP - General Family Medicine 01/02/22 documented as of this encounter
--- OUTSIDE RECORDS SUMMARY | 2024-12-04 13:18 | XMS_ITS | Encounter Summary ---
Author Organization [employer] s tem Address [facility]-[id number] [address] [place] [address] Care Team Providers Care Senior C Software Engineer Name Role Phone Patel Foy Primary Care Provider + [phone] Encounter Details Date Type Department Care Team (Latest Contact Info) Description 11/20/2024 Travel Social History Tobacco Use Types Packs/Day Years Used Date Smoking Tobacco: Former Cigarettes 1 10 0 09/27/1994 - 09/27/2004 Smokeless Tobacco: Never Alcohol Use Standard Drinks/Week Comments Yes 10 (1 standard drink = 0.6 oz pu re alcohol) [facility] Utilities Answer Date Recorded In the past 12 months has [employer], gas, oil, or water company threatened [...] often do you attend chur ch or yazidism services? More than 4 times per year 10/05/2022 Do you belong to any clubs o r organizations such as mormonism groups, unions, fraternal or athletic groups, or [...] Answer Date Recorded Total Score 0 11/06/2024 [facility] - Occupational Stress Questionnaire Answer Date [...] Recorded Do you need help finding a [facility] and/or a training program? No [...] on file documented as of this encounter Plan of Treatment Upcoming Encounters Date Type Department Care Team (Late st Contact Info) Description 01/12/2025 1:00 PM EDT Office Visit [facility] - Family Medicine [address] [place] [address] 05/10/2025 1:45 PM EST Office Visit [facility] - Family Medicine [address] [place] [address] Patel Foy DO [address], [place] [address] documented as of this encounter Visit Diagnoses Not on filedocumented in this encounter Additional Health Concerns Assessment Noted Time PHQ-9 Depression Total Score: 0 11/07/19 25 11:11 AM EDT A Body Mass Index follow-up plan has been documented for the patient 11/06/2024 2:23 PM EDT documented as of this encounter Care Teams Senior C Software Engineer Relationship Specialty Start Date End Date Patel Foy DO [address], [place] [address] PCP - General Family Medicine 01/02/22 documented as of this encounter
--- OUTSIDE RECORDS SUMMARY | 2024-12-04 13:18 | XMS_ITS | Encounter Summary ---
Author Organization [employer] Sys tem Address [facility]-[id number] [address] [place] [address] Care Team Providers Care Thermostat Maker Name Role Phone Patel Foy DO Primary Care Provider + [phone] Reason for Visit * Reason Comments Med Refill Encounter Details Date Type Department Care Team (Late st Contact Info) Description 11/23/2024 Refill [facility] - Family Medicine [address] [place] [address] Paetl Foy DO [address], [place] [address] Social History Tobacco Use Types Packs/Day Years Used Date Smoking Tobacco: Former Cigarettes 1 10 0 09/27/1994 - 09/27/2004 Smokeless Tobacco: Never Alcohol Use Standard Drinks/Week Comments Yes 10 (1 standard drink = 0.6 oz pu re alcohol) [facility] Utilities Answer Date Recorded In the past 12 months has [employer], oil, or water [employer] threatened to shut off services in your [...] 10/05/2022 How often do you attend chur or judaism services? More than 4 times per year 10/05/2022 Do you belong to any clubs o r organizations such as pentecostalism groups, unions, fraternal or athletic groups, or [...] Answer Date Recorded Total Score 0 11/06/2024 [facility] - Occupational Stress [...] Recorded Do you need help finding a [facility] career center and/or a training program? No [...] Medicine - Family Medicine [address] [place] [address] 05/10/2025 1:45 PM EST Office Visit [facility] - Family Medicine [address] [place] [address] Patel Foy DO [address] [facility] [place] [address] documented as of this encounter Visit Diagnoses Not on filedocumented in this encounter Additional Health Concerns Assessment Noted Time PHQ-9 Depression Total Score: 0 11/07/19 25 11:11 AM EDT A Body Mass Index follow-up plan has been documented for the patient 11/06/2024 2:23 PM EDT documented as of this encounter Care Teams Thermostat Maker Relationship Specialty Start Date End Date Patel Foy DO [address] [facility] [place] [address] PCP - General Family Medicine 01/02/22 documented as of this encounter
--- OUTSIDE RECORDS SUMMARY | 2024-12-04 13:19 | XMS_ITS | Encounter Summary ---
Author Organization [email or web address] Sys tem Address [facility]-[id number] [address] [place] [address] Care Team Providers Care Can Stacker Name Role Phone Patel Foy DO Primary Care Provider + [phone] Reason for Visit * Reason Comments Med Refill Encounter Details Date Type Department Care Team (Late st Contact Info) Description 07/13/2022 Refill [facility] - Family Medicine [address] [place] [address] Patel Foy DO [address], [facility] [place] [address] Social History Tobacco Use Types Packs/Day Years Used Date Smoking Tobacco: Former Smokeless Tobacco: Never Alcohol Use Standard Drinks/Week Comments Yes 10 (1 standard drink = 0.6 oz pu re alcohol) AUDIT-C Answer Date Recorded Q1: How often do you have a drink containing alc ohol? 2-4 times a month 02/06/2022 Q2: How many drinks containi ng alcohol do you have on a typical day when you are drinking? 1 or 2 02/06/2022 Q3: How often do you have si x or more drinks on one occasion? Never 02/06/2022 Childcare Answer Date Recorded Childcare Unknown 01/15/2019 Employment Answer Date Recorded Employment Unknown 01/15/2019 Purpose - Life Answer Date Recorded Purpose and direction in life Unknown Comments No Sex and Gender Information Value [...] Medicine - Family Medicine [address] [place] [address] 05/10/2025 1:45 PM EST Office Visit [facility] - Family Medicine [address] [place] [address] Patel Foy DO [address], [place] [address] documented as of this encounter Visit Diagnoses Not on filedocumented in this encounter Care Teams Can Stacker Relationship Specialty Start Date End Date Patel Foy DO [address] [place] [address] PCP - General Family Medicine 01/02/22 documented as of this encounter
--- OUTSIDE RECORDS SUMMARY | 2024-12-04 13:19 | XMS_ITS | Encounter Summary ---
Author Organization [employer] s tem Address [id number] [address] [place] [address] Care Team Providers Care Display Designer Outside Name Role Phone Patel Foy DO Primary Care Provider + [phone] Encounter Details Date Type Department Care Team (Late st Contact Info) Description 07/14/2022 Orders Only [facility] - Family Medicine [address] [place] [address] Patel Foy DO [address], [facility] [place] [address] Social History Tobacco Use Types Packs/Day Years [...] Medicine - Family Medicine [address] [place] [address] 05/10/2025 1:45 PM EST Office Visit [facility] - Family Medicine [address] [place] [address] Patel Foy DO [address], [place] [address] documented as of this encounter Visit Diagnoses Not on filedocumented in this encounter Care Teams Display Designer Outside Relationship Specialty Start Date End Date Patel Foy DO [address], [place] [address] PCP - General Family Medicine 01/02/22 documented as of this encounter
--- OUTSIDE RECORDS SUMMARY | 2024-12-04 13:19 | XMS_ITS | Encounter Summary ---
Author Organization [employer] Sys tem Address [id number] [address] [place] [address] Care Team Providers Care Tour Bus Driver Name Role Phone Patel Foy Primary Care Provider + [phone] Encounter Details Date Type Department Care Team (Late st Contact Info) Description 01/03/2023 Orders Only [facility] - Family Medicine [address] [place] [address] Ref Prov, [place] [address] Social History Tobacco Use Types Packs/Day Years Used Date Smoking Tobacco: Former Cigarettes 1 10 0 09/27/1994 - 09/27/2004 Smokeless Tobacco: Never Alcohol Use Standard Drinks/Week Comments Yes 10 (1 standard drink = 0.6 oz pu re alcohol) Social Connection and Isolat ion Panel [NHANES] Answer Date Recorded In a typical week, how many times do you talk on the phone with family, friends, or neighbors? Three times a week 10/05/2022 How often do you get togethe r with friends or relatives? More than three times a week 10/05/2022 How often do you attend chur ch or faith services? More than 4 times per year 10/05/2022 Do you belong to any clubs o r organizations such as islam groups, unions, fraternal or athletic groups, or [...] PHQ-2 Answer Date Recorded Total Score 0 11/15/2022 [facility] Occupat ional Health - Occupational Stress Questionnaire Answer Date Recorded Do you feel stress - tense, restless, nervous, or anxious, or unable to sleep at night because your mind is troubled all the time - these days? Rather much 11/15/2022 Exercise Vital Sign Answer Date Recorde d On average, how many days pe r week do you engage in moderate to strenuous exercise (like a brisk walk)? 0 days 11/15/2022 On average, how many minutes do you engage in exercise at this level? 0 min 11/15/2022 PRAPARE - Transportation Answer Date Re corded In the past 12 months, has l ack of transportation kept you from medical appointments or from getting medications? No 12/2022 In the past 12 months, has l ack of transportation kept you from meetings, work, or from getting things needed for daily living? No 10/05/2022 Childcare Answer Date Recorded Do problems getting child ca re make it difficult for you to work or study? No 10/05/2022 Employment Answer Date Recorded Do you need help finding a l ocal career center and/or a training program? No 10/05/2022 Hunger Screening Answer Date Recorded Within the past 12 months we worried whether our food would run out before we got money to buy more. Never True 11/15/2022 Within the past 12 months th e food we bought just didn't last and we didn't have money to get more. Never True 11/15/2022 Purpose - Life Answer Date Recorded I [...] Medicine - Family Medicine [address] [place] [address] 05/10/2025 1:45 PM EST Office Visit [facility] - Family Medicine [address] [place] [address] Patel Foy DO [address], [place] [address] documented as of this encounter Procedures Procedure Name Priority Date/Time Associated Diagnosis Comments HM COLONOSCOPY Routine 12/26/2022 documented in this encounter Results * HM COLONOSCOPY (12/26/2022) 12/26/2022 us Not In System Ref Prov HEALTH MAINTENANCE Edited Result - Final MANUALLY TRANSCRIBED RESULTS documented in this encounter Visit Diagnoses Not on filedocumented in this encounter Additional Health Concerns Assessment Noted Time PHQ-9 Depression Total Score: 0 11/16/19 23 1:38 PM EDT documented as of this encounter Care Teams Tour Bus Driver Relationship Specialty Start Date End Date Patel Foy DO [address] [place] [address] PCP - General Family Medicine 01/02/22 documented as of this encounter
--- OUTSIDE RECORDS SUMMARY | 2024-12-04 13:19 | XMS_ITS | Encounter Summary ---
Author Organization [employer] Sys [employer] Address [facility]-[id number] [address] [place] [address] Care Team Providers Care Medication Coordinator Name Role Phone Patel Foy Primary Care Provider + [phone] Encounter Details Date Type Department Care Team (Late st Contact Info) Description 10/05/2022 Orders Only [facility] - Family Medicine [address] [place] [address] External, Scanning Provider Social History Tobacco Use Types Packs/Day Years [...] often do you attend chur ch or sikhism services? More than 4 times per year 10/05/2022 Do you belong to any clubs o r organizations such as hindu groups, unions, fraternal or athletic groups, or [...] 10/05/2022 PHQ-2 Answer Date Recorded Total Score 16 10/05/2022 [facility] Occupat ional Health - Occupational Stress Questionnaire Answer Date Recorded Do you feel stress - tense, restless, nervous, or anxious, or unable to sleep at night because your mind is troubled all the time - these days? Rather much 10/05/2022 Exercise Vital Sign Answer Date Recorde d On average, how many days pe r week do you engage in moderate to strenuous exercise (like a brisk walk)? 6 days 10/05/2022 On average, how many minutes do you engage in exercise at this level? 10 min 10/05/2022 PRAPARE - Transportation Answer Date Re corded [...] center and/or a training program? No 10/05/2022 Purpose - Life Answer Date Recorded I [...] Medicine - Family Medicine [address] [place] [address] 05/10/2025 1:45 PM EST Office Visit [facility] - Family Medicine [address] [place] [address] Patel Foy DO [address] [place] [address] documented as of this encounter Procedures Procedure Name Priority Date/Time Associated Diagnosis Comments HEPATITIS C(HCV) ANTIBODY W/ REFLEX TO PCR Routine 08/15/2017 HM COLONOSCOPY Routine 05/07/2017 documented in this encounter Results * Hepatitis C(HCV) Ab w/ Reflex to PCR (08/15/2017) us Patel Foy DO LAB BLOOD ORDERABLES Final R esult MANUALLY TRANSCRIBED RESULTS * HM COLONOSCOPY (05/07/2017) us Scanning Provider External HEALTH MAINTENANCE Fi nal Result Performing Organization Address City/[facility]/ZIP Co de Phone Number MANUALLY TRANSCRIBED RESULTS documented in this encounter Visit Diagnoses Not on filedocumented in this encounter Additional Health Concerns Assessment Noted Time PHQ-9 Depression Total Score: 16 10/05/ 023 10:02 AM EDT documented as of this encounter Care Teams Medication Coordinator Relationship Specialty Start Date End Date Patel Foy DO [address] [facility] [place] [address] PCP - General Family Medicine 01/02/22 documented as of this encounter
--- OUTSIDE RECORDS SUMMARY | 2024-12-04 13:19 | XMS_ITS | Encounter Summary ---
Author Organization [facility] Address [address] [place] [address] Care Team Providers Care Bingo Checker Name Role Phone Patel Foy MD Primary Care Provider + [phone] Janell Doshi DO Unavailable [phone] Emeli Taylor ATTORNEY AT LAW Unavailable [phone] Encounter Details Date Type Department Care Team (Late st Contact Info) Description 03/15/2023 Abstract [facility] [address] [place] [address] Norma Elder ATTORNEY AT LAW Social History Tobacco Use Types Packs/Day Years Used Date Smoking Tobacco: Former Cigarettes Tobacco Cessation:Counseling Given: Not Answered Comments:Last smoked: >10 years Alcohol Use Standard Drinks/Week Comments Yes 0 (1 standard drink = 0.6 oz pur e alcohol) 1-2 drinks monthly or less Comments Unknown Sex and Gender Information Value Date Recorded Sex Assigned at Not on file Legal Sex Female 6:44 PM EDT Gender Identity Not on file Sexual Orientation Not on file documented as of this encounter Plan of Treatment Not on file documented as of this encounter Visit Diagnoses Not on filedocumented in this encounter Care Teams Bingo Checker Relationship Specialty Start Date End Date Patel Foy MD PCP - General Family Medicine 11/28/22 Janell Doshi DO [address] [place] [address] Referring Physician Neurology 05/12/24 Emeli Taylor NP [address] [place] [address] Nurse Practitioner Neurology 05/12/24 documented as of this encounter
--- OUTSIDE RECORDS SUMMARY | 2024-12-04 13:19 | XMS_ITS | Encounter Summary ---
Author Organization [employer] Address [id number] [address] [place] [address] Care Team Providers Care Water/Wastewater Project Engineer Name Role Phone Patel Foy Primary Care Provider + [phone] Encounter Details Date Type Department Care Team (Late st Contact Info) Description 11/30/2022 Orders Only [facility] - Family Medicine [address] [place] [address] External, Scanning Provider Social History Tobacco Use [...] often do you attend chur ch or orthodoxy services? More than 4 times per year 10/05/2022 Do you belong to any clubs o r organizations such as scientologist groups, unions, fraternal or athletic groups, or [...] Answer Date Recorded Total Score 0 11/15/2022 [facility] of Occupat ional Health - Occupational Stress [...] Recorded Do you need help finding a [employer] career center and/or a training program? No [...] Medicine - Family Medicine [address] [place] [address] 05/10/2025 1:45 PM EST Office Visit [facility] - Family Medicine [address] [place] [address] Patel Foy DO [address] [facility] [place] [address] documented as of this encounter Procedures Procedure Name Priority Date/Time Associated Diagnosis Comments HM MAMMOGRAPHY Routine 11/29/2022 11:28 AM EDT HM MAMMOGRAPHY Routine 11/29/2022 11:25 AM EDT documented in this encounter Results * HM MAMMOGRAPHY (11/29/2022 11:28 AM EDT) Anatomical Region Laterality Modality Other us Scanning Provider External HEALTH MAINTENANCE Fi nal Result * HM MAMMOGRAPHY (11/29/2022 11:25 AM EDT) Anatomical Region Laterality Modality Other us Scanning Provider External HEALTH MAINTENANCE Fi nal Result documented in this encounter Visit Diagnoses Not on filedocumented in this encounter Additional Health Concerns Assessment Noted Time PHQ-9 Depression Total Score: 0 11/16/19 23 1:38 PM EDT documented as of this encounter Care Teams Water/Wastewater Project Engineer Relationship Specialty Start Date End Date Patel Foy DO [address] [facility] [place] [address] PCP - General Family Medicine 01/02/22 documented as of this encounter
--- OUTSIDE RECORDS SUMMARY | 2024-12-04 13:19 | XMS_ITS | Encounter Summary ---
Author Organization [employer] tem Address [id number] [address] [place] [address] Care Team Providers Care Wealth Management Consultant Name Role Phone Patel Foy DO Primary Care Provider + [phone] Encounter Details Date Type Department Care Team (Late Contact Info) Description 09/03/2022 Orders Only [facility] - Family Medicine [address] [place] [phone] External, Scanning Provider Social History Tobacco Use [...] Encounters Date Type Department Care Team (Late Contact Info) Description 01/12/2025 1:00 PM EDT Office Visit [facility] - Family Medicine [address] [place] [address] 05/10/2025 1:45 PM EST Office Visit [facility] - Family Medicine [address] [place] [address] Patel Foy DO [address], [place] [address] documented as of this encounter Procedures Procedure Name Priority Date/Time Associated Diagnosis Comments DIABETES EYE EXAM Routine 09/03/2022 documented in this encounter Results * DIABETES EYE EXAM (09/03/2022) us Scanning Provider External HEALTH MAINTENANCE nal Result MANUALLY TRANSCRIBED RESULTS documented in this encounter Visit Diagnoses Not on filedocumented in this encounter Care Teams Wealth Management Consultant Relationship Specialty Start Date End Date Patel Foy DO [address] [facility] [place] [address] PCP - General Family Medicine 01/02/22 documented as of this encounter
--- OUTSIDE RECORDS SUMMARY | 2024-12-04 13:19 | XMS_ITS | Encounter Summary ---
Author Organization [employer] s tem Address [id number] [address] [place] [address] Care Team Providers Care Egg Sorter Name Role Phone SwatiPatel perez Primary Care Provider + [phone] Encounter Details Date Type Department Care Team (Late st Contact Info) Description 09/17/2023 Telephone [facility] - Family Medicine [address] [place] [phone] Christina Pierre, [employer] Social History Tobacco Use Types Packs/Day Years Used Date Smoking Tobacco: Former Cigarettes 1 10 0 09/27/1994 - 09/27/2004 Smokeless Tobacco: Never Alcohol Use Standard Drinks/Week Comments Yes 10 (1 standard drink = 0.6 oz pu re alcohol) [facility] Utilities Answer Date Recorded In the past 12 months has [employer], gas, oil, or water [employer] threatened to shut off services in your [...] often do you attend chur ch or gnosticism services? More than 4 times per year 10/05/2022 Do you belong to any clubs o r organizations such as congregation groups, unions, fraternal or athletic groups, or [...] 10/05/2022 PHQ-2 Answer Date Recorded Total Score 4 05/20/2023 [facility] of Occupat ional Health - Occupational Stress [...] Recorded Do you need help finding a [facility] career center and/or a training program? No 10/05/2022 Hunger Screening Answer Date Recorded Within the past 12 months we worried whether our food would run out before we got money to buy more. Never True 05/20/2023 Within the past 12 months th e food we bought just didn't last and we didn't have money to get more. Never True 05/20/2023 Purpose - Life Answer Date Recorded I have a purpose and direction in my life. Jessie gly Agree 10/05/2022 Comments No Sex and Gender Information Value Date Recorded Sex Assigned at Not on file Legal Sex Female 12:56 PM EDT Gender Identity Not on file Sexual Orientation Not on file documented as of this encounter Miscellaneous Notes * Telephone Encounter - Christina Pierre CMA - 09/17/2023 8:12 AM EDT Pt called requesting a RX for diabetic test strips . Stated she was getting them free but they stopped that * Telephone Encounter - Patel Foy DO - 09/17/2023 8:12 AM EDT Would brand of glucometer does she use. Test strips have to match the glucometer * Telephone Encounter - Christina Pierre CMA - 09/17/2023 8:12 AM EDT Called pt left vm to cb * Telephone Encounter - Christina Pierre CMA - 09/17/2023 8:12 AM EDT Contour is the brand and she needs lancets and strips sent to [facility] * Telephone Encounter - Christina Pierre CMA - 09/17/2023 8:12 AM EDT Images from the original note were not included. Me BENNETT 09/17/23 8:14 AM Note Pt called requesting a RX for diabetic test strips . Stated she was getting them free but they stopped that * Telephone Encounter - Christina Pierre CMA - 09/17/2023 8:12 AM EDT Countour is the brand strips and lacets documented in this encounter Plan of Treatment Upcoming Encounters Date Type Department Care Team (Late st Contact Info) Description 01/12/2025 1:00 PM EDT Office Visit [facility] - Family Medicine [address] [place] [address] 05/10/2025 1:45 PM EST Office Visit [facility] - Family Medicine [address] [place] [address] Patel Foy DO [address] [facility] [place] [address] documented as of this encounter Visit Diagnoses Not on filedocumented in this encounter Additional Health Concerns Assessment Noted Time PHQ-9 Depression Total Score: 4 05/20/19 24 2:41 PM EST documented as of this encounter Care Teams Egg Sorter Relationship Specialty Start Date End Date Patel Foy DO [address] [facility] [place] [address] PCP - General Family Medicine 01/02/22 documented as of this encounter
--- OUTSIDE RECORDS SUMMARY | 2024-12-04 13:19 | XMS_ITS | Encounter Summary ---
Author Organization [employer] tem Address [id number] [address] [place] [address] Care Team Providers Care Corporate Development Officer Name Role Phone Patel Foy DO Primary Care Provider + [phone] Encounter Details Date Type Department Care Team (Late st Contact Info) Description 06/28/2024 Orders Only [facility] - Family Medicine [address] [place] [phone] Patel Foy DO [address], [facility] [address] Social History Tobacco Use Types Packs/Day Years Used Date Smoking Tobacco: Former Cigarettes 1 10 0 09/27/1994 - 09/27/2004 Smokeless Tobacco: Never Alcohol Use Standard Drinks/Week Comments Yes 10 (1 standard drink = 0.6 oz pu re alcohol) [facility] Utilities Answer Date Recorded In the past 12 months has [employer], [employer], or water [employer] threatened to shut off services in your [...] How often do you attend chur or holiness services? More than 4 times per year 10/05/2022 Do you belong to any clubs o r organizations such as anabaptist groups, unions, fraternal or athletic groups, or [...] PHQ-2 Answer Date Recorded Total Score 0 01/07/2024 [facility] of Occupat ional Health - Occupational [...] Recorded Do you need help finding a [facility] career center and/or a training program? No 10/05/2022 Hunger Screening Answer Date Recorded Within the past 12 months we worried whether our food would run out before we got money to buy more. Never True 01/07/2024 Within the past 12 months th e food we bought just didn't last and we didn't have money to get more. Never True 01/07/2024 Purpose - Life Answer Date Recorded I [...] - Family Medicine [address] [place] [address] 05/10/2025 1:45 PM EST Office Visit [facility] - Family Medicine [address] [place] [address] Patel Foy DO [address] [place] [address] documented as of this encounter Visit Diagnoses Not on filedocumented in this encounter Additional Health Concerns Assessment Noted Time PHQ-9 Depression Total Score: 0 01/07/20 24 3:50 PM EDT documented as of this encounter Care Teams Corporate Development Officer Relationship Specialty Start Date End Date Patel Foy DO [address] [place] [address] PCP - General Family Medicine 01/02/22 documented as of this encounter
--- OUTSIDE RECORDS SUMMARY | 2024-12-04 13:19 | XMS_ITS | Encounter Summary ---
Author Organization [facility] tem Address [id number] [address] [place] [address] Care Team Providers Care Mental Health Aide Name Role Phone Patel Foy DO Primary Care Provider + [phone] Encounter Details Date Type Department Care Team (Late st Contact Info) Description 11/15/2022 [facility]phone [facility] [address] [place] [phone] Patel Foy DO [address], [facility] [place] [address] Social History Tobacco Use Types Packs/Day Years [...] often do you attend chur ch or druze services? More than 4 times per year 10/05/2022 Do you belong to any clubs o r organizations such as jain groups, unions, fraternal or athletic groups, or [...] Answer Date Recorded Total Score 0 11/15/2022 [facility] of Occupat ional Health - Occupational [...] Recorded Do you need help finding a [facility] career center and/or a training program? No [...] encounter Miscellaneous Notes * Telephone Encounter - Tiesha Lacey - 11/15/2022 1:56 PM EDT Pt is requesting a parking placard. She has not had one before and is now ready to apply for one. Thanks * Telephone Encounter - Patel Foy DO - 11/15/2022 1:56 PM EDT I am not sure exactly what the reason is for the handicap sticker. She may need an appointment to discuss. I know she uses oxygen but I thought it was just at bedtime. And knows she has arthritis butshe has to meet certain criteria for that * Telephone Encounter - Tiesha Lacey - 11/15/2022 1:56 PM EDT Pt was going to try and get this for her arthritis. She will talk to you about this at her next appt documented in this encounter Plan of Treatment Upcoming Encounters Date Type Department Care Team (Late st Contact Info) Description 01/12/2025 1:00 PM EDT Office Visit [facility] - Family Medicine [address] [place] [address] 05/10/2025 1:45 PM EST Office Visit [facility] - Family Medicine [address] [place] [address] Patel Foy DO [address] [place] [address] documented as of this encounter Visit Diagnoses Not on filedocumented in this encounter Additional Health Concerns Assessment Noted Time PHQ-9 Depression Total Score: 0 11/16/19 23 1:38 PM EDT documented as of this encounter Care Teams Mental Health Aide Relationship Specialty Start Date End Date Patel Foy DO [address] [place] [address] PCP - General Family Medicine 01/02/22 documented as of this encounter
--- OUTSIDE RECORDS SUMMARY | 2024-12-04 13:19 | XMS_ITS | Clinical Summary ---
Author Organization [facility] Address [address] [place] [address] Care Team Providers Care Straddle Truck Driver Name Role Phone Patel Foy DO Primary Care Provider Allergies Active Allergy Reactions Criticality Noted Date Comments Latex Rash Low 05/20/2023 Lidocaine Rash Low 12/18/2023 Lisinopril Cough 02/06/2022 Medications apixaban (Eliquis) 5 mg tablet Take 5 mg by mouth twice a day. 3 Active empagliflozin (Jardiance) 10 mg Take 1 tablet by mouth in the morning. 3 Active escitalopram (Lexapro) 10 mg tablet Take 10 mg by mouth in the morning. 3 Active lansoprazole (Prevacid) [address] capsule Take 1 capsule by mouth if needed each day. 2 Active losartan-hydrochl orothiazide (Hyzaar) 50-12.5 mg tablet Take 1 tablet by mouth in the morning. 3 Active metFORMIN (Glucophage) 500 mg tablet Take 500 mg by mouth every other day. 3 Active mirtazapine (Remeron) 15 mg tablet Take 0.5-1 tablets by mouth if needed. 4 Active semaglutide (Ozempic) 0.25 mg or 0.5 mg(2 mg/1.5 mL) pen injector Inject 0.25 mg under the skin once a week. 4 Active simvastatin (Zocor) 20 mg tablet Take 20 mg by mouth at bedtime. 3 Active metoprolol succinate XL (Toprol-XL) 100 mg 24 hr tabletIndications :Essential hypertension Take 1 tablet (100 mg) by mouth in the morning. 90 tablet 3 Active Active Problems Problem Noted Date Diagnosed Date Depression, major, in remission 05/08/2024 Insomnia 11/26/2023 Snoring 11/26/2023 BMI 40.0-44.9, adult 08/12/2023 08/12/2023 alf current use of anticoagulant 4 08/12/2023 Benign neoplasm of ascending colon 05/20/2023 07/30/2023 Cobalamin deficiency 05/20/2023 07/30/2023 Elevated factor VIII level 05/20/202307/29 Arthritis of right knee 11/27/2022 07/30/19 Iron deficiency anemia 11/27/2022 Benign hypertensive heart di sease with NYHA class 1 diastolic heart failure 10/05/2022 07/30/2023 Pulmonary embolism 02/28/2021 07/30/2023 Morbid obesity 10/17/2020 07/30/2023 Periodic limb movement disorder 04/09/2019 07/30/2023 Synovial cyst of knee 03/28/2019 07/30/2023 Sleep apnea 02/10/2019 07/30/2023 Anxiety 02/19/2018 07/30/2023 Diastolic dysfunction 08/19/2017 07/30/2023 Moderate depressive episode 08/16/2017 04/0 05/2023 Primary osteoarthritis 08/14/2017 Age-related macular degeneration 04/08/2017 07/30/2023 Essential hypertension 04/08/2017 4 Gastroesophageal reflux disease 04/08/2017 07/30/2023 Herpes zoster 04/08/2017 07/30/2023 Hyperlipidemia 04/08/2017 07/30/2023 Psoriasis 04/08/2017 07/30/2023 Type 2 diabetes mellitus 04/08/2017 024 Encounters Date Type Department Care Team Description 10/14/2024 2:00 PM EDT Office Visit [facility] [place] [address] [place] [address] Lianet Thomas CNP Essential hypertension (Primary Dx); Mixed hyperlipidemia; RBBB; Abnormal EKG; Recurrent pulmonary embolism (CMS/HCC); Palpitations from Last 3 Months Immunizations Immunization Administration Dates Next Due Influenza, High Dose Seasona l, Preservative Free 02/08/2020,02/17/2018 Influenza, High-dose Seasona l, Quadrivalent, Preservative Free 02/26/2022 Influenza, Seasonal, Quadriv alent, Adjuvanted 05/06/2023,02/16/2021 Influenza, injectable, quadr ivalent, preservative free 12/28/2021,02/02/2019,03/05/2017 Influenza, seasonal, injecta ble, preservative free, 6 moonths & older 04/08/2015 Novel [id number], preservative-free 03/10 Pneumococcal Polysaccharide PPV23 05/06/2019, Tdap 08/29/2018 Family History Medical History Relation Name Comments Heart failure Father Heart failure Mother Relation Name Status Comments Father Mother Social History Tobacco Use Types Packs/Day Years Used Date Smoking Tobacco: Former Cigarettes Smokeless Tobacco: Never Tobacco Cessation:Counseling Given: Not Answered Alcohol Use Standard Drinks/Week Comments Yes 0 (1 standard drink = 0.6 oz pur e alcohol) occasionally [place] Safety & Environment Answer Date Rec orded Fear of Current or Ex-Partner Not on file Emotionally Abused Not on file 07/30/2023 Physically Abused Not on file 07/30/2023 Sexually Abused Not on file 07/30/2023 Physically or Sexually Abused Not on file Comments Unknown Sex and Gender Information Value Date Recorded Sex Assigned at Female 07/30/2023 3:57 PM EDT Legal Sex Female 10:43 PM EDT Gender Identity Female 07/30/2023 3:57 PM EDT Sexual Orientation Heterosexual or Straight 05/2023 3:57 PM EDT Last Filed Vital Signs Vital Sign Reading Time Taken Comments Blood Pressure 144/66 10/14/2024 2:21 PM EDT Pulse 78 10/14/2024 2:21 PM EDT Temperature - - Respiratory Rate - - Oxygen Saturation 95% 10/14/2024 2:21 PM EDT Inhaled Oxygen Concentration - - Weight 95.7 kg (211 lb) 10/14/2024 2:21 PM EDT Height 152.4 cm (5') 10/14/2024 2:21 PM EDT Body Mass Index 41.21 10/14/2024 2:21 PM EDT Plan of Treatment Health Maintenance Due Date Last Done Comments Diabetes: Hemoglobin A1C 1945 Medicare Annual Wellness (AWV) 1945 Diabetes: Retinopathy Screening 1957 Depression Screening 1959 Zoster Vaccines (1 of 2) 1997 Fall Risk Screening 2012 Pneumococcal Vaccine: 50+ Years (2 of 2 - PCV) 05/06/2020 05/06/2019, 01/15/2015 COVID-19 Vaccine (3 - 2023- season) 2023 07/12/2020, 06/16/2020 Diabetes: Urine Protein Screening 05/20/2024 05/20/2023 Influenza Vaccine (#1) 2024 , 05/06/2023, 02/26/2022, Additional history exists Adult Tetanus 08/29/2028 08/29/2018 Colonoscopy Discontinued 12/26/2022, 04/29, 11/12/2007 Colorectal Cancer Screening Discontinued CT Colonography Discontinued FIT-DNA Discontinued FIT Discontinued FOBT Discontinued HIB Vaccines Aged Out No longer eligi ble based on patient's age to complete this topic HPV Vaccines Aged Out No longer eligi ble based on patient's age to complete this topic IPV Vaccines Aged Out No longer eligi ble based on patient's age to complete this topic Meningococcal B Vaccine Aged Out No l onger eligible based on patient's age to complete this topic Meningococcal Vaccine Aged Out No debi wdae eligible based on patient's age to complete this topic Rotavirus Vaccines Aged Out No longer eligible based on patient's age to complete this topic Sigmoidoscopy Discontinued Insurance [employer] MEDICARE [place] [id number] Care Teams Straddle Truck Driver Relationship Specialty Start Date End Date Patel Foy DO PCP - General Family Medicine 07/30/23
--- OUTSIDE RECORDS SUMMARY | 2024-12-04 13:19 | XMS_ITS | Encounter Summary ---
Author Organization [employer] tem Address [id number] [address] [place] [address] Care Team Providers Care Bulbs Farmworker Name Role Phone Patel Foy DO Primary Care Provider + [phone] Encounter Details Date Type Department Care Team (Late Contact Info) Description 09/27/2022 Orders Only [facility] - Family Medicine [address] [place] [address] External, Scanning Provider Social History Tobacco Use [...] Medicine - Family Medicine [address] [place] [address] 05/10/2025 1:45 PM EST Office Visit [facility] - Family Medicine [address] [place] [address] Patel Foy DO [address], [place] [address] documented as of this encounter Procedures Procedure Name Priority Date/Time Associated Diagnosis Comments DIABETES EYE EXAM Routine 09/27/2022 documented in this encounter Results * DIABETES EYE EXAM (09/27/2022) us Scanning Provider External HEALTH MAINTENANCE nal Result MANUALLY TRANSCRIBED RESULTS documented in this encounter Visit Diagnoses Not on filedocumented in this encounter Care Teams Bulbs Farmworker Relationship Specialty Start Date End Date Patel Foy DO [address] [facility] [address] PCP - General Family Medicine 01/02/22 documented as of this encounter
--- OUTSIDE RECORDS SUMMARY | 2024-12-04 13:19 | XMS_ITS | Clinical Summary ---
Author Organization [address] Address [facility] [id number] [address] [place] [address] Care Team Providers Care Tutoring Clinician Name Role Phone FranchescagokulPatel perez Primary Care Provider + [phone] Allergies Active Allergy Reactions Criticality Noted Date Comments Latex Rash Low 05/20/2023 Lidocaine Rash Low 12/18/2023 Lidocaine Hcl-Me Eyf-Dop-Arsms Rash Low 10/24 Lisinopril Cough 02/06/2022 Medications acetaminophen (TYLENOL ARTHRITIS) 650 mg 8 hr tablet Take 1 tablet (650 mg total) by mouth every 8 (eight) hours as needed for pain. 30 tablet 10/06/19 23 Active mirtazapine (REMERON) 15 mg tablet Take 0.5 tablets (7.5 mg total) by mouth nightly as needed. 04/30/19 24 Active TRUE METRIX GLUCOSE METER misc 09/26/19 24 Active mecobalamin, vitamin B12, 10,000 mcg recon soln Inject as directed. Active iron dextran complex (INFED) 50 mg/mL injection Infuse into a venous catheter. Active metFORMIN (GLUCOPHAGE) 500 mg tablet TAKE 1 TABLET BY MOUTH TWICE DAILY 180 tablet 3 03/18/20 24 Active ELIQUIS 5 mg tablet TAKE 1 TABLET BY MOUTH TWICE DAILY 180 tablet 3 04/06/20 24 Active escitalopram (LEXAPRO) 10 mg tablet TAKE 1 TABLET BY MOUTH IN THE MORNING 90 tablet 1 09/01/19 25 Active losartan-hydro CHLOROthiazide (HYZAAR) 50-12.5 mg per tablet TAKE 1 TABLET BY MOUTH IN THE MORNING 90 tablet 1 09/22/19 25 Active simvastatin (ZOCOR) 20 mg tablet TAKE 1 TABLET BY MOUTH DAILY 90 tablet 1 09/22/19 25 Active JARDIANCE 10 mg tablet tablet TAKE 1 TABLET BY MOUTH IN THE MORNING 90 tablet 11/03/19 25 Active TRUE METRIX GLUCOSE TEST STRIP strip USE DIRECTED to test BLOOD SUGAR ONCE DAILY 09/24/19 25 Active metoprolol succinate XL (TOPROL XL) 100 mg 24 hr tablet Take 1 tablet (100 mg total) by mouth in the morning. 10/15/19 25 Active semaglutide (OZEMPIC) 0.25 mg or 0.5 mg (2 mg/3 mL) pen injector Inject 0.5 mg under the skin once a week. 9 mL 3 11/17/19 25 Active lansoprazole (PREVACID) 30 mg capsule TAKE 1 CAPSULE BY MOUTH DAILY NEEDED 90 capsule 3 11/25/19 25 Active lansoprazole (PREVACID) 30 mg capsule TAKE 1 CAPSULE BY MOUTH DAILY NEEDED 90 capsule 1 06/29/19 25 025 Discontinued semaglutide (OZEMPIC) 0.25 mg or 0.5 mg (2 mg/3 mL) pen injector Inject 0.5 mg under the skin once a week. 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 Arthritis of right knee 11/27/2022 Iron deficiency anemia 11/27/2022 Benign hypertensive heart di sease with NYHA class 1 diastolic heart failure 10/05/2022 Morbid obesity 10/17/2020 Periodic limb movement disorder 04/09/2019 Synovial cyst of knee 03/28/2019 Obstructive sleep apnea 02/10/2019 Anxiety 02/19/2018 Diastolic dysfunction 08/19/2017 Primary osteoarthritis 08/14/2017 Age-related macular degeneration 04/08/2017 Essential hypertension 04/08/2017 Gastroesophageal reflux disease 04/08/2017 Herpes zoster 04/08/2017 Hyperlipidemia 04/08/2017 Psoriasis 04/08/2017 Type 2 diabetes mellitus 04/08/2017 Resolved Problems Problem Noted Date Diagnosed Date Resolved Date Pulmonary embolism 02/28/2021 5 Moderate depressive episode 08/16/2017 11/06/2024 Malignant melanoma 08/14/2017 3 Encounters Date Type Department Care Team Description 11/23/2024 Refill [facility] [address] [place] [address] Patel Foy DO 11/20/2024 2:28 AM EDT - 11/20/2024 6:54 AM EDT Emergency [facility] - Emergency [address], [place] [address] Gulshan Diaz DO Anterior dislocation of right shoulder, initial encounter (Primary Dx) Discharge Disposition: Home 11/20/2024 Travel 11/16/2024 Refill [facility] [address] [place] [address] Patel Foy DO 11/08/2024 Results [facility] [address] [place] [address] Patel Fyo DO TSH, Lipid profile, Hemoglobin A1c, Comprehensive metabolic panel 11/06/2024 11:00 AM EDT [facility] [address] [place] [address] Patel Foy, Type 2 diabetes mellitus with retinopathy without macular edema, without long-term current use of insulin, unspecified laterality, unspecified retinopathy severity (CMS-HCC) (Primary Dx); Benign hypertensive heart disease with NYHA class 1 diastolic heart failure (CMS-HCC); Hyperlipidemia, unspecified hyperlipidemia type; Morbid obesity (CMS-HCC); Depression, major, in remission 11/06/2024 Travel 11/02/2024 Refill [facility] [address] [place] [address] Patel Foy DO 09/20/2024 Refill [facility] [address] [place] [address] Patel Foy, from Last 3 Months Immunizations Immunization Administration Dates Next Due H1N1 Inj Preservative Free 03/10/2009 Influenza (IM) Preservative Free 04/08/2015 Influenza High Dose Preservative Free IM 024,02/08/2020,02/17/2018 Influenza Vaccine, Quadrivalent, Adjuvanted 11/2023,02/16/2021 Influenza, High-dose, Quadrivalent 02/26/2022 Influenza, Injectable, quadrivalent (PF) 022,02/02/2019,03/05/2017 Influenza, Unspecified 02/26/2022 Pneumococcal Polysaccharide 05/06/2019, 5 RSV, bivalent, protein subun it RSVpreF, diluent reconstituted, 0.5 mL, PF 04/17/2024 Tdap 08/29/2018 Family History Medical History Relation Name Comments Hypertension Brother Stroke Brother Esophageal cancer Father at ag e 82; smoker No Known Problems Mother sudden dmitry th at 75, smoker Heart attack Sister 1 sudden at age 52; smoker Hypertension Sister 2 No Known Problems Sister 3 COPD Son 1 Gulshan pneumothorax Relation Name Status Comments Brother Alive Father Mother Sister 1 Sister 2 Alive Sister 3 Alive Son 1 Gulshan Alive Son 2 Alive Social History Tobacco Use Types Packs/Day Years Used Date Smoking Tobacco: Former Cigarettes 1 10 0 09/27/1994 - 09/27/2004 Smokeless Tobacco: Never Tobacco Cessation:Counseling Given: Not Answered Alcohol Use Standard Drinks/Week Comments Yes 10 (1 standard drink = 0.6 oz pu re alcohol) [facility] Utilities Answer Date Recorded In the past 12 months has th e [employer], gas, oil, or water [employer] threatened to shut off services in your [...] often do you attend chur ch or worship services? More than 4 times per year 10/05/2022 Do you belong to any clubs o r organizations such as lutheran groups, unions, fraternal or athletic groups, or [...] Answer Date Recorded Total Score 0 11/06/2024 [facility] - [...] Recorded Do you need help finding a [facility] career center and/or a training program? No [...] on file Sexual Orientation Not on file Last Filed Vital Signs Vital Sign Reading [...] Mass Index 39.06 11/20/2024 2:26 AM EDT Plan of Treatment Upcoming Encounters Date Type Department Care Team (Late st Contact Info) Description 01/12/2025 1:00 PM EDT Office Visit [facility] [address] [place] [address] 05/10/2025 1:45 PM EST Office Visit [facility] [address] [place] [address] Patel Foy, DO [address] [facility], [place] [address] Health Maintenance Due Date Last Done Comments Zoster (Shingles) Vaccine (1 of 2) 1997 COVID-19 Vaccine (2023-2 5 season) 2023 07/12/2020, 06/16/2020 Influenza Vaccine 12/28/2024 02/08/2024, , 02/26/2022, Additional history exists Medicare Annual Wellness Visit 01/06/2025 01/07/2024 , 11/15/2022 Depression Screening 11/06/2025 11/06/2024 Fall Risk Screening 11/06/2025 11/06/2024 Tobacco Screening 11/20/2025 11/20/2024 Colonoscopy 12/27/2027 12/26/2022, 05/07/2017 DTaP,Tdap and Td Vaccines (2 - Td or Tdap) 08/29/2028 08/29/2018 Medical Devices Not on file Procedures Procedure Name Priority Date/Time Associated Diagnosis Comments XR SHOULDER RT 1 VW STAT 11/20/2024 5 :44 AM EDT PM ED ORTHOPEDIC INJURY TREATMENT Routine 11/20/2024 5:24 AM EDT XR SHOULDER RT 1 VW STAT 11/20/2024 4 :41 AM EDT XR HUMERUS RT MIN 2 VWS STAT 11/20/2024 3:15 AM EDT XR SHOULDER RT MIN 2 VWS STAT 11/20/2024 3:15 AM EDT COMPREHENSIVE METABOLIC PANEL Routine 11/06/2024 11:38 AM EDT Benign hypertensive heart disease with NYHA class 1 diastolic heart failure ([facility]-HCC) HEMOGLOBIN A1C Routine 11/06/2024 11:38 AM EDT Type 2 diabetes mellitus with retinopathy without macular edema, without long-term current use of insulin, unspecified laterality, unspecified retinopathy severity (CMS-HCC) LIPID PROFILE Routine 11/06/2024 11:38 AM EDT Hyperlipidemia, unspecified hyperlipidemia type TSH Routine 11/06/2024 11:38 AM EDT Type 2 diabetes mellitus with retinopathy without macular edema, without long-term current use of insulin, unspecified laterality, unspecified retinopathy severity (CMS-HCC) Benign hypertensive heart disease with NYHA class 1 diastolic heart failure (CMS-HCC) Hyperlipidemia, unspecified hyperlipidemia type HM COLONOSCOPY Routine 12/26/2022 from Last 3 Months or Most Recently Relevant to Health Maintenance Results * X-ray shoulder right 1 view (11/20/2024 5:44 AM EDT) Only the most recent of2 resultswithin the time period is included. Anatomical Region Laterality Modality MSK, Upper Extremities, [...] Radha Spivey MD on 11/20/2024 5:52 AM us Gulshan Diaz DO IMG DIAGNOSTIC IMAGING ORDERAB [...] Analgesia: Fentanyl Intra-procedure monitoring: Blood pressure monitoring, groundwater monitoring technician, continuous pulse oximetry, continuous capnometry, frequent LOC [...] the procedure well with no immediate complications Gulshna Diaz DO PROCEDURE/MINOR SURGICAL ORDER SUNIL Final Result * X-ray humerus right minimum [...] on 11/20/2024 3:20 AM Gulshan Diaz DO IMG DIAGNOSTIC IMAGING [...] on 11/20/2024 3:19 AM Gulshan Diaz DO IMG DIAGNOSTIC IMAGING ORDERAB LES Final Result * TSH (11/06/2024 11:38 AM EDT) TSH 1.78 0.49 - 4.67 uIU/mL 11/06/2024 6:07 PM EDT [facility] Blood Venous blood / Unknown 11/06/2024 11:38 AM EDT 11/06/2024 11:38 AM EDT Patel Foy DO LAB BLOOD ORDERABLES Final R esult [facility] [address] [place] [address], * Hemoglobin A1c (11/06/2024 11:38 AM EDT) HEMOGLOBIN A1C 5.4 4.4 - 5.6 % 11/06/2024 6:14 PM EDT [facility] Comment: ADA Guidelines Result HgbA1c Normal : less than 5.7 % Prediabetes : 5.7 % to 6.4 % Diabetes : > 6.4 % Use with caution in patients with abnormal hemoglobin variants as the half-life of red blood cells and in vivo glycation rates are affected. EST. AVERAGE GLUCOSE 108 mg/dL 11/06/2024 6:14 PM EDT [facility] Blood Venous blood / Unknown 11/06/2024 11:38 AM EDT 11/06/2024 11:38 AM EDT us Patel Foy LAB BLOOD ORDERABLES Final R esult [facility] [address] [place] [address], [place] [phone] * Lipid profile (11/06/2024 11:38 AM EDT) CHOLESTEROL 186 150 - 200 mg/dL 11/06/2024 5:59 PM EDT [facility] TRIGLYCERIDE 129 27 - 150 mg/dL 11/06/2024 5:59 PM EDT [facility] HDL CHOLESTEROL 58 >39 mg/dL 5:59 PM EDT [facility] Comment: HDL <40 mg/dL - High Risk HDL > or = 40mg/dL- Desirable HDL >60 mg/dL - Negative Risk LDL (CALC) 102 <130 mg/dL 11/06/2024 5:59 PM EDT [facility] Comment: LDL <100 mg/dL - Desirable LDL >160 mg/dL - High Risk CHOLESTEROL:HDL 3.2 1.0 - 5.0 5:59 PM EDT [facility] VERY LOW LIPOPROTEIN 26 0 - 30 mg/dL 11/06/2024 5:59 PM EDT [facility] Blood Venous blood / Unknown 11/06/2024 11:38 AM EDT 11/06/2024 11:38 AM EDT us Patel Foy DO LAB BLOOD ORDERABLES Final R esult [facility] [address] [place] [id number], * Comprehensive metabolic panel (11/06/2024 11:38 AM EDT) SODIUM 137 134 - 146 mmol/L 11/06/2024 5:59 PM EDT [facility] POTASSIUM 3.8 3.5 - 5.0 mmol/L 11/06/2024 5:59 PM EDT [facility] CHLORIDE 100 98 - 109 mmol/L 11/06/2024 5:59 PM EDT [facility] CARBON DIOXIDE 30 22 - 32 mmol/L 11/06/2024 5:59 PM EDT [facility] ANION GAP 7 5 - 15 mmol/L 11/06/2024 5:59 PM EDT [facility] BLOOD UREA NITROGEN 9 5 - 27 mg/dL 11/06/2024 5:59 PM EDT [facility] CREATININE 0.64 0.40 - 1.00 mg/dL 11/06/2024 5:59 PM EDT [facility] Comment:METHOD TRACEABLE TO IDMS STANDARD GLUCOSE 98 65 - 99 mg/dL 11/06/2024 5:59 PM EDT [facility] CALCIUM 9.5 8.5 - 10.5 mg/dL 11/06/2024 5:59 PM EDT [facility] TOTAL PROTEIN 6.8 6.0 - 8.0 g/dL 11/06/2024 5:59 PM EDT [facility] ALBUMIN 4.1 3.2 - 5.3 g/dL 11/06/2024 5:59 PM EDT [facility] ALKALINE PHOSPHATASE 64 39 - 130 U/L 11/06/2024 5:59 PM EDT [facility] AST 17 <=41 U/L 11/06/2024 5:59 PM EDT [facility] ALT 19 <=31 U/L 11/06/2024 5:59 PM EDT [facility] BILIRUBIN,TOTAL 0.5 0.3 - 1.2 mg/dL 11/06/2024 5:59 PM EDT [facility] EGFR Non-Race Dependent >90 >=60 ml/min/1.7 3sq.m 11/06/2024 5:59 PM EDT [facility] Comment: Reported eGFR is based on the CKD-EPI 2020 equation that does not use a race coefficient. Blood Venous blood / Unknown 11/06/2024 11:38 AM EDT 11/06/2024 11:38 AM EDT us Patel Foy DO LAB BLOOD ORDERABLES Final R esult [facility] [address] [place] [address], * HM COLONOSCOPY (12/26/2022) 12/26/2022 us Not In System Ref Prov HEALTH MAINTENANCE Edited Result - Final Performing Organization Address City/[facility]/ZIP Co de Phone Number MANUALLY TRANSCRIBED RESULTS from Last 3 Months or Most Recently Relevant to Health Maintenance Insurance [employer] MEDICARE Care Teams Tutoring Clinician Relationship Specialty Start Date End Date Patel Foy DO [address] [facility], [place] [address] PCP - General Family Medicine 01/02/22
--- OUTSIDE RECORDS SUMMARY | 2024-12-04 13:19 | XMS_ITS | Encounter Summary ---
Author Organization [employer] [facility] tem Address [facility] [id number] [address] [place] [address] Care Team Providers Care Negative Turner Apprentice Name Role Phone Patel Foy DO Primary Care Provider + [phone] Encounter Details Date Type Department Care Team (Late st Contact Info) Description 09/05/2023 Orders Only [facility] - [facility] Medicine [address] [place] [address] Patel Foy DO [address], [facility] [place] [address] Social History Tobacco Use Types Packs/Day Years Used Date Smoking Tobacco: Former Cigarettes 1 10 0 09/27/1994 - 09/27/2004 Smokeless Tobacco: Never Alcohol Use Standard Drinks/Week Comments Yes 10 (1 standard drink = 0.6 oz pu re alcohol) [facility] Utilities Answer Date Recorded In the past 12 months has [employer], [employer], or water [employer] threatened to shut off services in your [...] How often do you attend chur or confucianist services? More than 4 times per year 10/05/2022 Do you belong to any clubs o r organizations such as samaritan groups, unions, fraternal or athletic groups, or [...] Answer Date Recorded Total Score 4 05/20/2023 [facility] Health - Occupational [...] Recorded Do you need help finding a [facility] career center and/or a training [...] Description 01/12/2025 1:00 PM EDT [facility] [address] [place] [address] 05/10/2025 1:45 PM EST [facility] [address] [place] [address] Patel Foy DO [address] [place] [address] documented as of this encounter Procedures Procedure Name Priority Date/Time Associated Diagnosis Comments ECHO DOPPLER Routine 08/28/2023 4:56 PM EDT documented in this encounter Results * Echo Doppler (08/28/2023 4:56 PM EDT) Anatomical Region Laterality Modality Chest N/A Ultrasound us Scanning Provider External CV ECHO ORDERABLES Fi nal Result documented in this encounter Visit Diagnoses Not on filedocumented in this encounter Additional Health Concerns Assessment Noted Time PHQ-9 Depression Total Score: 4 05/20/19 24 2:41 PM EST documented as of this encounter Care Teams Negative Turner Apprentice Relationship Specialty Start Date End Date Patel Foy DO [address] [place] [address] PCP - General Family Medicine 01/02/22 documented as of this encounter
--- OUTSIDE RECORDS SUMMARY | 2024-12-04 13:19 | XMS_ITS | Encounter Summary ---
Author Organization [id number] Address [facility] [id number] [address] [place] [address] Care Team Providers Care Syrup Mixer Name Role Phone Patel Foy DO Primary Care Provider + [phone] Encounter Details Date Type Department Care Team (Late st Contact Info) Description 02/26/2022 [facility]phone [facility] [address] [place] [address] Janell Colón CMA Social History Tobacco Use Types Packs/Day Years [...] on file Sexual Orientation Not on file COVID-19 Exposure Response Date Recorded In the last month, have you been in contact with someone who was confirmed or suspected to have Coronavirus / COVID-19? No / Unsure 02/06/2022 2:30 PM EDT documented as of this encounter Miscellaneous Notes * Telephone Encounter - Janell Colón CMA - 02/26/2022 2:00 PM EDT I called patient and she wanted to know if it is safe for her to get the covid booster since she nando blood thinners? * Telephone Encounter - Patel Foy DO - 02/26/2022 2:00 PM EDT yes documented in this encounter Plan of Treatment Upcoming Encounters Date Type Department Care Team (Late st Contact Info) Description 01/12/2025 1:00 PM EDT Office Visit [facility] [address] [place] [address] 05/10/2025 1:45 PM EST Office Visit [facility] [address] [place] [address] Patel Foy DO [address] [place] [address] documented as of this encounter Visit Diagnoses Not on filedocumented in this encounter Care Teams Syrup Mixer Relationship Specialty Start Date End Date Patel Foy DO [address] [place] [address] PCP - General Family Medicine 01/02/22 documented as of this encounter
--- OUTSIDE RECORDS SUMMARY | 2024-12-04 13:19 | XMS_ITS | Encounter Summary ---
Author Organization [employer] Address [facility] [id number] [address] [place] [address] Care Team Providers Care Winter Intern Name Role Phone Patel Foy DO Primary Care Provider + [phone] Reason for Visit * Reason Comments Med Refill Encounter Details Date Type Department Care Team (Late Contact Info) Description 01/22/2022 Refill [facility] [address] [place] [address] Patel Foy DO [address], [facility] [place] [address] Social History Tobacco Use Types Packs/Day Years Used Date Smoking Tobacco: Former Smokeless Tobacco: Never Alcohol Use Standard Drinks/Week Comments Yes 10 (1 standard drink = 0.6 oz pu re alcohol) Childcare Answer Date Recorded Childcare Unknown 01/15/2019 [...] have Coronavirus / COVID-19? No / Unsure 01/03/2022 1:33 PM EDT documented as of this encounter Plan of Treatment Upcoming Encounters Date Type Department Care Team (Late Contact Info) Description 01/12/2025 1:00 PM EDT Office Visit [facility] [address] [place] [address] 05/10/2025 1:45 PM EST Office Visit [facility] Medicine [address] [place] [address] Patel Foy DO [address] [facility] [place] [address] documented as of this encounter Visit Diagnoses Not on filedocumented in this encounter Care Teams Winter Intern Relationship Specialty Start Date End Date Patel Foy DO [address] [facility] [place] [address] PCP - General Family Medicine 01/02/22 documented as of this encounter
--- OUTSIDE RECORDS SUMMARY | 2024-12-04 13:19 | XMS_ITS | Encounter Summary ---
Author Organization [facility] [employer] [facility] Address [facility] [id number] [address] [place] [address] Care Team Providers Care Community Liaison Name Role Phone Patel Foy DO Primary Care Provider + [phone] Reason for Visit * Reason Onset Date Comments Med Refill 07/25/2022 Encounter Details Date Type Department Care Team (Late st Contact Info) Description 07/25/2022 Refill [facility] - Family Medicine [address] [place] [address] Patel Foy DO [address], [place] [address] Essential hypertension Social History Tobacco Use Types Packs/Day Years [...] Medicine - Family Medicine [address] [place] [address] 05/10/2025 1:45 PM EST Office Visit [facility] Medicine [address] [place] [address] Patel Foy DO [address] [place] [address] documented as of this encounter Visit Diagnoses Diagnosis Essential hypertension Unspecified essential hypertension documented in this encounter Care Teams Community Liaison Relationship Specialty Start Date End Date Patel Foy DO [address] [place] [address] PCP - General Family Medicine 01/02/22 documented as of this encounter
--- OUTSIDE RECORDS SUMMARY | 2024-12-04 13:19 | XMS_ITS | Encounter Summary ---
Author Organization [employer] s tem Address [facility]-[id number] [address] [place] [address] Care Team Providers Care Circular Sawyer Helper Name Role Phone Patel Foy DO Primary Care Provider + [phone] Reason for Visit * Reason Onset Date Comments Med Refill 05/14/2022 Encounter Details Date Type Department Care Team (Late Contact Info) Description 05/14/2022 [facility] [address] [place] [address] Loree Driscoll CMA Social History Tobacco Use Types Packs/Day [...] Medicine - Family Medicine [address] [place] [address] 05/10/2025 1:45 PM EST Office Visit [facility] [address] [place] [address] Patel Foy DO [address] [facility] [place] [address] documented as of this encounter Visit Diagnoses Not on filedocumented in this encounter Care Teams Circular Sawyer Helper Relationship Specialty Start Date End Date Patel Foy DO [address] [facility] [place] [address] PCP - General Family Medicine 01/02/22 documented as of this encounter
--- OUTSIDE RECORDS SUMMARY | 2024-12-04 13:19 | XMS_ITS | Encounter Summary ---
Author Organization [employer] Address [id number] [address] [place] [address] Care Team Providers Care Roofer Helper Name Role Phone Patel Foy DO Primary Care Provider + [phone] Reason for Visit * Reason Comments Med Refill Encounter Details Date Type Department Care Team (Late st Contact Info) Description 09/14/2022 Refill [facility] Internal Medicine - Family Medicine [address] [place] [address] Patel Foy DO [address], [facility] [place] [address] Social History Tobacco Use Types Packs/Day Years [...] Medicine - Family Medicine [address] [place] [address] 05/10/2025 1:45 PM EST Office Visit [facility] - Family Medicine [address] [place] [address] Patel Foy DO [address], [place] [address] documented as of this encounter Visit Diagnoses Not on filedocumented in this encounter Care Teams Roofer Helper Relationship Specialty Start Date End Date Patel Foy DO [address] [place] [address] PCP - General Family Medicine 01/02/22 documented as of this encounter
--- OUTSIDE RECORDS SUMMARY | 2024-12-04 13:20 | XMS_ITS | Encounter Summary ---
Author Organization [employer] Address [id number] [address] [place] [address] Care Team Providers Care Pad Tufter Name Role Phone Patel Foy Primary Care Provider + [phone] Encounter Details Date Type Department Care Team (Late st Contact Info) Description 12/04/2023 Orders Only [facility] - Family Medicine [address] [place] [id number] External, Scanning Provider Social History Tobacco Use Types Packs/Day Years Used Date Smoking Tobacco: Former Cigarettes 1 10 0 09/27/1994 - 09/27/2004 Smokeless Tobacco: Never Alcohol Use Standard Drinks/Week Comments Yes 10 (1 standard drink = 0.6 oz pu re alcohol) [facility] Utilities Answer Date Recorded In the past 12 months has [employer], gas, oil, or water [employer] threatened to shut off services in your [...] often do you attend chur ch or catholic services? More than 4 times per year 10/05/2022 Do you belong to any clubs o r organizations such as jainism groups, unions, fraternal or athletic groups, or [...] PHQ-2 Answer Date Recorded Total Score 0 11/06/2023 [facility] - Occupational [...] Recorded Do you need help finding a [facility] career center and/or a training program? No 10/05/2022 Hunger Screening Answer Date Recorded Within the past 12 months we worried whether our food would run out before we got money to buy more. Never True 11/06/2023 Within the past 12 months th e food we bought just didn't last and we didn't have money to get more. Never True 11/06/2023 Purpose - Life Answer Date Recorded I [...] Medicine - Family Medicine [address] [place] [address] 05/10/2025 1:45 PM EST Office Visit [facility] - Family Medicine [address] [place] [address] Patel Foy DO [address] [place] [address] documented as of this encounter Procedures Procedure Name Priority Date/Time Associated Diagnosis Comments MAMMOGRAPHY Routine 12/02/2023 8:55 AM EDT documented in this encounter Results * MAMMOGRAPHY (12/02/2023 8:55 AM EDT) Anatomical Region Laterality Modality Other us Scanning Provider External HEALTH MAINTENANCE Ed ited Result - Final documented in this encounter Visit Diagnoses Not on filedocumented in this encounter Additional Health Concerns Assessment Noted Time PHQ-9 Depression Total Score: 0 11/06/19 24 10:37 AM EDT documented as of this encounter Care Teams Pad Tufter Relationship Specialty Start Date End Date Patel Foy DO [address] [place] [address] PCP - General Family Medicine 01/02/22 documented as of this encounter
--- OUTSIDE RECORDS SUMMARY | 2024-12-04 13:20 | XMS_ITS | Clinical Summary ---
Author Organization [facility] Address [address] [place] [address] Care Team Providers Care Magnetic Grinder Operator Name Role Phone Patel Foy MD Primary Care Provider [phone] Janell Doshi DO Unavailable [phone] Emeli Taylor GRINDER HAND Unavailable [phone] Allergies Active Allergy Reactions Criticality Noted Date Comments Latex Rash Low 12/18/2022 Lidocaine Rash Low 12/18/2023 Lisinopril Cough 02/06/2022 Medications apixaban (Eliquis) 5 MG tablet Take 5 mg by mouth in the morning and 5 mg before bedtime. 07/14/2022 Active empagliflozin (Jardiance) 10 MG Take 10 mg by mouth in the morning. 09/15/2022 Active escitalopram (Lexapro) 10 MG tablet Take 10 mg by mouth in the morning. 07/25/2022 Active simvastatin (Zocor) 20 MG tablet Take 1 tablet by mouth in the morning. 07/14/2022 Active metoprolol succinate XL (Toprol-XL) 50 MG 24 hr tablet Take 50 mg by mouth in the morning. 07/25/2022 Active losartan (Cozaar) 25 MG tablet 25 mg 1 (one) time each day at the same time. Active lansoprazole (Prevacid) [address] capsule TAKE 1 CAPSULE DAILY NEEDED 01/22/2022 Active Semaglutide,0.25 or 0.5MG/DOS, 2 MG/3ML solution pen-injector every week 06/19/2023 Activ e mirtazapine (Remeron) 15 MG tabletIndication s:Insomnia, unspecified type Take 0.5-1 tablets (7.5-15 mg) by mouth at bedtime 30 tablet 5 11/26/2023 Active Active Problems Problem Noted Date Diagnosed Date Obstructive sleep apnea 11/26/2023 Hypoxia 11/26/2023 Snoring 11/26/2023 Insomnia 11/26/2023 Iron deficiency anemia 11/27/2022 Arthritis of right knee 11/27/2022 Benign hypertensive heart di sease with NYHA class 1 diastolic heart failure 10/05/2022 Pulmonary embolism 02/28/2021 Morbid obesity 10/17/2020 Periodic limb movement disorder 04/09/2019 Synovial cyst of knee 03/28/2019 Sleep apnea 02/10/2019 Anxiety 02/19/2018 Diastolic dysfunction 08/19/2017 Moderate depressive episode 08/16/2017 Primary osteoarthritis 08/14/2017 Type 2 diabetes mellitus 04/08/2017 Psoriasis 04/08/2017 Hyperlipidemia 04/08/2017 Herpes zoster 04/08/2017 Gastroesophageal reflux disease 04/08/2017 Essential hypertension 04/08/2017 Age-related macular degeneration 04/08/2017 Encounters Date Type Department Care Team Description 09/10/2024 External Result Encounter [facility] Unsolicited Reggie Maurice DO 09/10/2024 External Result Encounter [facility] External [facility] Unsolicited Reggie Maurice DO from Last 3 Months Immunizations Immunization Administration Dates Next Due Influenza, High Dose Seasona l, Preservative Free 02/08/2020,02/17/2018 Influenza, High-dose Seasona l, Quadrivalent, Preservative Free 02/26/2022 Influenza, Seasonal, Quadriv alent, Adjuvanted 02/16/2021 Influenza, injectable, quadr ivalent, preservative free 12/28/2021,02/02/2019,03/05/2017 Influenza, seasonal, injecta ble, preservative free 04/08/2015 Moderna SARS-CoV-2 Vaccination 07/12/2020,2020 Novel [id number], preservative-free 03/10 Pneumococcal Polysaccharide PPSV23 05/06/2019, Tdap 08/29/2018 Family History Medical History Relation Name Comments Diabetes Father Heart disease Father Hypertension Father Heart disease Mother Diabetes Other Family history Esophageal cancer Other Family history Heart disease Other Family history Hyperlipidemia Other Family history Hypertension Other Family history Lung disease Other Family history black lung Relation Name Status Comments Father Mother Other Family history Social History Tobacco Use Types Packs/Day Years Used Date Smoking Tobacco: Former Cigarettes 1 5 0 06/12/1998 - 09/05/2004 Smokeless Tobacco: Never Tobacco Cessation:Counseling Given: Not Answered Comments:Last smoked: >10 years Alcohol Use Standard Drinks/Week Comments Yes 8 (1 standard drink = 0.6 oz pur e alcohol) 1-2 drinks monthly or less Comments Unknown Sex and Gender Information Value Date Recorded Sex Assigned at Not on file Legal Sex Female 6:44 PM EDT Gender Identity Not on file Sexual Orientation Not on file Last Filed Vital Signs Vital Sign Reading Time Taken Comments Blood Pressure 135/76 05/11/2024 2:19 PM EST Pulse 82 05/11/2024 2:19 PM EST Temperature - - Respiratory Rate - - Oxygen Saturation 92% 11/26/2023 2:35 PM EDT Inhaled Oxygen Concentration - - Weight 106 kg (233 lb) 05/11/2024 2:19 PM EST Height 152.4 cm (5') 05/11/2024 2:19 PM EST Body Mass Index 45.5 05/11/2024 2:19 PM EST Plan of Treatment Health Maintenance Due Date Last Done Comments Pneumococcal Vaccine: 65+ Ye ars (2 of 2 - PCV) 05/06/2020 05/06/2019, 01/15/2015 Influenza Vaccine (#1) 2024 4, 05/06/2023, 02/26/2022, Additional history exists Colonoscopy Discontinued 12/26/2022, 04/29, 11/12/2007 Colorectal Cancer Screening Discontinued CT Colonography Discontinued FIT-DNA Discontinued FIT Discontinued FOBT Discontinued Sigmoidoscopy Discontinued Procedures Procedure Name Priority Date/Time Associated Diagnosis Comments FERRITIN Routine 09/10/2024 2:52 PM EDT IRON AND TOTAL IRON BINDING CAPACITY Routine 09/10/2024 2:52 PM EDT COMPREHENSIVE METABOLIC PANEL Routine 09/10/2024 2:52 PM EDT CBC WITH AUTO DIFFERENTIAL Routine 09/10/2024 2:52 PM EDT from Last 3 Months Results * CBC auto differential (09/10/2024 2:52 PM EDT) WBC 5.7 3.8 - 11.6 10*3/uL 09/10/2024 4:21 PM EDT [facility] UNCORRECTED WHITE BLOOD COUNT 5.7 3.8 - 11.6 10*3/uL 09/10/2024 4:21 PM EDT [facility] RBC 4.38 3.60 - 5.00 10*6/uL 09/10/2024 4:21 PM EDT [facility] HEMOGLOBIN 13.4 11.8 - 15.4 g/dL 09/10/2024 4:21 PM EDT [facility] HEMATOCRIT 40.1 34.0 - 46.4 % 09/10/2024 4:21 PM EDT [facility] MCV 91.5 80 - 100 fL 09/10/2024 4:21 PM EDT [facility] MCH 30.5 24.7 - 34.3 pg 09/10/2024 4:21 PM EDT [facility] MCHC 33.4 32.0 - 35.0 g/dL 09/10/2024 4:21 PM EDT [facility] RED CELL DISTRIBUTION WIDTH, RDW 14.4 11.9 - 15.3 % 09/10/2024 4:21 PM EDT [facility] PLATELET COUNT 253 150 - 450 10*3/uL 09/10/2024 4:21 PM EDT [facility] MEAN PLATELET VOLUME, MPV 8.0 6.3 - 10.7 fL 09/10/2024 4:21 PM EDT [facility] NEUTROPHILS, % 59.4 . % 09/10/2024 4:21 PM EDT [facility] LYMPHOCYTES, % 31.1 . % 09/10/2024 4:21 PM EDT [facility] MONOCYTE/MACROPHA GE, % 7.1 . % 09/10/2024 4:21 PM EDT [facility] EOSINOPHILS, % 1.3 . % 09/10/2024 4:21 PM EDT [facility] BASOPHILS, % 1.1 . % 09/10/2024 4:21 PM EDT [facility] NRBC 0.1 0 - 0.5 /100{WBC} 09/10/2024 4:21 PM EDT [facility] NEUTROPHILS 3.4 1.8 - 7.7 10*3/uL 09/10/2024 4:21 PM EDT [facility] LYMPHOCYTES 1.8 1.00 - 4.8 10*3/uL 09/10/2024 4:21 PM EDT [facility] MONOCYTES 0.4 0.0 - 0.8 10*3/uL 09/10/2024 4:21 PM EDT [facility] EOSINOPHILS 0.1 0.0 - 0.45 10*3/uL 09/10/2024 4:21 PM EDT [facility] BASOPHILS 0.1 0.0 - 0.2 10*3/uL 09/10/2024 4:21 PM EDT [facility] Blood (Blood) 09/10/2024 2:5 2 PM EDT 09/10/2024 4:15 PM EDT us Reggie Maurice DO LAB BLOOD ORDERABLES Cheri l Result Performing Organization Address City/State/[facility] Co de Phone Number [facility] [address] [place] [address], [facility] [address] [phone] * (ABNORMAL) Iron and TIBC (09/10/2024 2:52 PM EDT) IRON 58 50 - 212 ug/dL 09/10/2024 4:42 PM EDT [facility] TOTAL IRON BINDING CAPACITY 351 255 - 450 ug/dL 09/10/2024 4:42 PM EDT [facility] % IRON SATURATION 16.5(L) 20 - 50 % 09/10/2024 4:42 PM EDT [facility] TRANSFERRIN 251 203 - 362 mg/dL 09/10/2024 4:42 PM EDT [facility] Other Topography unknown / Unknown 09/10/2024 2:52 PM EDT 09/10/2024 4:16 PM EDT Reggie J Kaylene DO LAB BLOOD ORDERABLES Cheri l Result Performing Organization Address City/[facility]/ZIP Co de Phone Number [facility] [address] [place] [address], [facility] [address] [place] [address] * Ferritin (09/10/2024 2:52 PM EDT) Pathologist [facility] FERRITIN 110.0 11.0 - 306.8 ng/mL 09/10/2024 5:02 PM EDT [facility] Other Topography unknown / Unknown 09/10/2024 2:52 PM EDT 09/10/2024 4:16 PM EDT Reggie Juan Maurice DO LAB BLOOD ORDERABLES Cheri l Result Performing Organization Address [facility] Co de Phone Number [address] [address], [facility] [address] [place] [address] * (ABNORMAL) Comprehensive metabolic panel (09/10/2024 2:52 PM EDT) [facility] Glucose 86 70 - 100 mg/dL 09/10/2024 4:42 PM EDT [facility] Comment: Random Glucose Reference Range is dependent on time and content of last meal. Glucose of more than 200 mg/dL in a nonstressed, ambulatory subject supports the diagnosis of Diabetes Mellitus. ADA recommended reference range BUN 11 7 - 25 mg/dL 09/10/2024 4:42 PM EDT [facility] CREATININE 0.63 0.60 - 1.20 mg/dL 09/10/2024 4:42 PM EDT [facility] ESTIMATED GFR >60.0 mL/Min 09/10/2024 4:42 PM EDT [facility] Sodium 140 136 - 145 mmol/L 09/10/2024 4:42 PM EDT [facility] Potassium, Bld 4.1 3.5 - 5.1 mmol/L 09/10/2024 4:42 PM EDT [facility] Chloride 102 98 - 107 mmol/L 09/10/2024 4:42 PM EDT [facility] Carbon Dioxide 31.1(H) 21.0 - 31.0 mmol/L 09/10/2024 4:42 PM EDT [facility] Anion Gap 11.0 6.0 - 15.0 meq/L 09/10/2024 4:42 PM EDT [facility] Calcium 9.3 8.6 - 10.3 mg/dL 09/10/2024 4:42 PM EDT [facility] TOTAL PROTEIN 6.8 6.4 - 8.9 g/dL 09/10/2024 4:42 PM EDT [facility] ALBUMIN LEVEL 4.2 3.5 - 5.7 g/dL 09/10/2024 4:42 PM EDT [facility] GLOBULIN 2.6 g/dL 09/10/2024 4:42 PM EDT [facility] ALBUMIN/GLOBULIN RATIO 1.6 09/10/2024 4:42 PM EDT [facility] BILIRUBIN,TOTAL 0.4 0.3 - 1.0 mg/dL 09/10/2024 4:42 PM EDT [facility] ASPARTATE AMINO TRANSFERASE 15 13 - 39 U/L 09/10/2024 4:42 PM EDT [facility] ALANINE AMINOTRANSFERASE 12 7 - 52 U/L 09/10/2024 4:42 PM EDT [facility] ALKALINE PHOSPHATASE 65 34 - 104 U/L 09/10/2024 4:42 PM EDT [facility] CREATININE CLR CALC PHARMACY 64.21 09/10/2024 4:42 PM EDT [facility] Other Topography unknown / Unknown 09/10/2024 2:52 PM EDT 09/10/2024 4:16 PM EDT Reggie Maurice DO LAB BLOOD ORDERABLES Cheri monae Result [facility] [address] [place] [address], [facility] [address] [place] [address] from Last 3 Months Insurance [employer] Care Teams Magnetic Grinder Operator Relationship Specialty Start Date End Date Patel Foy MD PCP - General Family Medicine 11/28/22 Janell Doshi DO [address] [place] [address] Referring Physician Neurology 05/12/24 Emeli Taylor NP [address] [place] [address] Nurse Practitioner Neurology 05/12/24
--- NOTE | 2024-12-04 13:25 | MM_ITS ---
Patient Name: SAMIR STREET MR#: [id number] : 1945 Exam Date: 12/04/2024 Ordering Doctor: DR BENY DAVIS RADIOLOGY REPORT PROCEDURE: MM TOMOSYNTHESIS SCREENING BI COMPARISON: MM TOMOSYNTHESIS SCREENING BI, 12/02/2023. MM TOMOSYNTHESIS SCREENING BI, 11/29/2022. MG MAMM SCREEN 3D BRONSON CAD, 11/07/2021. MG MAMM BRONSON SCRN W CAD DIG, 03/24/2013. INDICATIONS: Screening for malignancy of breast Calculator Name NCI Breast Cancer Risk Assessment Tool 5 Year Breast Cancer Risk 1.80% Lifetime Breast Cancer Risk 3.50% Personal Breast Cancer No Personal Ovarian Cancer No Treatments None Family Cancers Son with hodgkins lymphoma cancer at age 9; Father with esophogeal cancer at age 82. LOCATION: [facility] BREAST COMPOSITION: There are scattered areas of fibroglandular density. FINDINGS: DIAGNOSTIC CATEGORY 1--NEGATIVE. RIGHT BREAST: No significant suspicious finding. LEFT BREAST: No significant suspicious finding. RECOMMENDATIONS: ROUTINE MAMMOGRAM AND CLINICAL EVALUATION IN 12 MONTHS. PLEASE NOTE: A NORMAL MAMMOGRAM DOES NOT EXCLUDE THE POSSIBILITY OF BREAST CANCER. A CLINICALLY SUSPICIOUS PALPABLE LUMP SHOULD BE BIOPSIED. Dictated by: Enrique Salas DO on 12/04/2024 at 15:22 Approved by: Enrique Salas DO on 12/04/2024 at 15:24
== END 2024-12-04 13:16 | disposition home or self-care (01) ==
PROVIDERS: PCP Family Medicine; Visit Provider Family Medicine
DX: Z12.31 Encounter for screening mammogram for malignant neoplasm of breast (principal); Z80.7 Family history of other malignant neoplasms of lymphoid, hematopoietic and related tissues; Z80.8 Family history of malignant neoplasm of other organs or systems
CPT/HCPCS: 77063; 77067